=== PATIENT | female | born 1935 | race Caucasian/White ===

== ENCOUNTER → 2019-07-31 10:30 | Outpatient (BNVA) | payer MEDICARE, OTHER, SELFPAY | PROVIDERS: Family Provider Family Medicine; PCP Family Medicine; Referring Provider Family Medicine; Visit Provider Family Medicine | DX: E11.9 Type 2 diabetes mellitus without complications (principal); I10 Essential (primary) hypertension; M75.52 Bursitis of left shoulder; Z79.4 Long term (current) use of insulin | CPT/HCPCS: 80053; 83036; 85025 ==

== ENCOUNTER → 2020-02-18 15:32 | Outpatient (BNVA) | payer MEDICARE, OTHER, SELFPAY | PROVIDERS: Family Provider Family Medicine; PCP Family Medicine; Visit Provider Family Medicine | DX: E11.9 Type 2 diabetes mellitus without complications (principal); I10 Essential (primary) hypertension; Z79.4 Long term (current) use of insulin; M75.52 Bursitis of left shoulder; M47.812 Spondylosis without myelopathy or radiculopathy, cervical region; M47.816 Spondylosis without myelopathy or radiculopathy, lumbar region | CPT/HCPCS: 80053; 83036; 85025 ==

== ENCOUNTER → 2020-08-18 15:50 | Outpatient (BNVA) | payer MEDICARE, OTHER, SELFPAY | PROVIDERS: Family Provider Family Medicine; PCP Family Medicine; Visit Provider Family Medicine | DX: R60.0 Localized edema (principal); M75.52 Bursitis of left shoulder; E11.9 Type 2 diabetes mellitus without complications; M47.812 Spondylosis without myelopathy or radiculopathy, cervical region; M47.816 Spondylosis without myelopathy or radiculopathy, lumbar region; M17.12 Unilateral primary osteoarthritis, left knee; Z79.4 Long term (current) use of insulin | CPT/HCPCS: 80048; 83036; 85025 ==

== ENCOUNTER 2020-09-11 09:21 | Inpatient (IN) | payer MEDICARE, OTHER, SELFPAY ==
[2020-09-11] VITALS (12 sets, daily range): BP systolic 88–157; BP diastolic 37–98; PULSE 66–84; RESP 16–20; TEMP 37.4–39; O2SAT 92–99; BMI 45.7
--- NOTE | 2020-09-11 10:12 | XR_ITS ---
WS: [id number] Portable AP semiupright chest, 09/11/2020 Clinical Data: dyspnea/cough Comparison: Portable chest, 12/24/2018. Findings: No nodules, masses or effusions are seen. The heart is normal. The pulmonary vascularity is not increased. No pneumonia or pneumothorax is seen. The aortic arch and descending aorta show calci fication and tortuosity. XR/XR chest 1V portable [id number] Impression: Atherosclerosis.
--- NOTE | 2020-09-11 10:12 | ECG_ITS ---
[facility] Test Date: 2020-09-11 Pat Name: Victoria Knox Department: Room: Gender: Female Floor Helper: : 1935 Requested By: Williams Lemons Order Number: [id number] Dottie MD: Rachel Dennis M.D. Measurements Intervals [place] Rate: 69 P: 50 MI: 168 QRS: -14 QRSD: 94 T: 49 QT: 376 QTc: 404 Interpretive Statements SINUS RHYTHM Compared to ECG 12/24/2018 08:22:00 No significant changes Electronically Signed On 09-12-2020 6:16:13 CDT by Rachel Dennis M.D. [id number]
--- NOTE | 2020-09-11 10:16 | ED_ITS ---
HPI - Fever General: Chief Complaint: Fever Stated Complaint: WEAKNESS/ DIFFICULTY BREATHING/ SPEAKING Time Seen by Provider: 09/11/20 09:42 History of Present Illness: HPI Narrative: 85-year-old female presents emergency room with complaint of shortness of breath and fever. She has had multiple strokes in the past and over the last week has been more difficult to communicate with event more difficulty understanding her speech. Because of her previous strokes a little bit difficult to quantify the family believes she was last normal on Tuesday night which would have been 36 hours ago. She has had a bit of a fever and a cough she is normally does not wear oxygen is now requiring 2 L by nasal cannula to maintain sats in the upper 90s. Denies chest pain. MD elicited complaint: fever Pertinent past history: diabetes Onset (ago): day(s) Measured temperature: 100.9 F Exacerbating factors: nothing Relieving factors: nothing Associated symptoms: Reports chills, confusion, cough and short of breath; Deny abdominal pain, flank pain, chest pain, diarrhea, dysuria, extremity pain, headache(s), myalgias, nasal congestion, nausea, night sweats, rash, rhinorrhea, sinus pain, stiffness, sore throat or vomiting Treatments prior to arrival fever: other (Oxygen) Review of Systems Const: Reports: chills; Denies: night sweats ENMT: Denies: nasal congestion or sinus pain Card: Denies: chest pain Resp: Denies: dyspnea, productive cough or non-productive cough GI: Denies: abdominal pain, nausea, vomiting or diarrhea : Denies: flank pain or dysuria Musc: Denies: extremity pain Skin/Breast: Denies: rash or pruritus Neuro: Reports: confusion; Denies: headache(s) PFSH ED PFSH: Medical History Bursitis of left shoulder Degenerative joint disease of cervical and lumbar spine Diabetes Hypertension Hypothalamic hypothyroidism Incontinence Osteoarthritis Social History Smoking and tobacco status: never smoked Alcohol intake: never Physical Exam Const: COMMON NORMALS: no acute distress GENERAL APPEARANCE: cooperative and comfortable ORIENTATION/CONSCIOUSNESS: Yes oriented to person, Yes oriented to place and Yes oriented to time HENMT: COMMON NORMALS: normocephalic, atraumatic and hearing grossly normal bilaterally HEAD & SCALP: normocephalic and atraumatic Neck/C-Spine: COMMON NORMALS: no JVD Lymph: LYMPHATIC: no lymphadenopathy noted and no lymphedema noted Resp: COMMON NORMALS: normal respiratory effort, No retractions, No use of accessory muscles and clear to auscultation bilaterally AUSCULTATION: clear to auscultation bilaterally Cardio: COMMON NORMALS: no JVD, regular rate, regular rhythm and No murmurs present (Cardio) RATE: regular rate RHYTHM: regular rhythm GI: COMMON NORMALS: Soft to palpation and No hepatosplenomegaly present AUSCULTATION: Yes normoactive bowel sounds PALPATION: Yes Soft to palpation, No Tenderness to palpation present (GI), No Guarding due to palpation present (GI) and Yes No hepatosplenomegaly present Extremity: COMMON NORMALS: normal to inspection, capillary refill normal, no clubbing, cyanosis or edema, no calf tenderness and no pedal edema Neuro: SENSORIUM/ORIENTATION: Yes oriented to person, Yes oriented to place and Yes oriented to time Skin: COMMON NORMALS: no rashes or lesions noted GENERAL SKIN EXAM: no rashes or lesions noted Course Vital Signs: Vital signs: Vital Signs Temperature 102.2 F H 09/11/20 09:24 Pulse Rate 69 09/11/20 14:00 Respiratory Rate 16 09/11/20 14:00 Blood Pressure 112/67 09/11/20 14:00 Pulse Oximetry 97 09/11/20 14:00 MDM - Fever MDM Narrative: Medical decision making narrative: Is aExtended delay in the patient's work-up. Family refused to allow testing to be done that was ordered because they were concerned that if she had testing we would be vaccinating her for Covid. I reassured them that this was not the case despite this they declined testing for an extended period of time ultimately I was able to conv katarina him to allow us to do at least one Covid test. CT the head and abdomen did not show anything acute however there is a concern of a cystic mass in the tail of the pancreas that will need to be further evaluated. I do not think this necessarily because of her fever. She has a mild cystitis with that as well does not seem to be significant enough to cause a degree of fever that we have been seeing. These are still pending work and admit the patient as a PUI will also cover for possible meningitis friends up because of her encephalopathy. This is multifactorial infectious as well as chronic underlying dementia. Because of her thrombocytopenia and aspirin use we will have to hold off on RONALD and lumbar tap discussed Dr. Ruiz he agreed we will start her on acyclovir as well as antibiotic coverage for possible meningitis. Lab Data: Labs: Lab Results 09/11/20 09/11/20 09/11/20 Range/Units 10:30 10:40 10:40 WBC 3.8 L (4.0-10.0) 10^3/ uL RBC 4.63 (4.1-5.3) 10^6/u L Hgb 14.0 (11.5-15.3) g/dL Hct 43.3 (37.0-47.0) % MCV 93.5 (81-99) fL MCH 30.2 (28.0-34.0) pg MCHC 32.3 (30.0-36.0) g/dL RDW 14.5 (12.1-15.1) % Plt Count 95 L (130-400) 10^3/c mm MPV 10.3 (7.4-10.4) fL Neut % (Auto) 70.0 % Lymph % (Auto) 21.1 % [place] % (Auto) 6.7 % Eos % (Auto) 0.0 % Baso % (Auto) 1.1 % Neut # (Auto) 2.63 (1.8-7.7) 10^3/u L Lymph # (Auto) 0.8 (0.8-4.8) 10^3/u L [place] # (Auto) 0.3 (0.2-0.9) 10^3/u L Eos # (Auto) 0.0 (0.0-0.8) 10^3/u L Baso # (Auto) 0.0 (0.0-0.1) 10^3/u L Nucleated RBC % (a uto) 0 % Nucleated RBCs # 0.0 /100WBC Sodium Potassium Chloride Carbon Dioxide Anion Gap BUN Creatinine GFR Calculation Glucose Calculated Osmolal ity Lactic Acid Cancelled Lactate Calcium Total Bilirubin AST ALT Alkaline Phosphata se Creatine Kinase Total Protein Albumin Globulin Lipase Urine Color Straw (Yellow) Urine Appearance Sl hazy (CLEAR) Urine pH 5 (5-7) Ur Specific Gravit y 1.010 (1.005-1.030) Urine Protein Neg (Negative) Urine Glucose (UA) Norm (Normal) Urine Ketones Negative (Negative) Urine Blood 3+ H (Negative) Urine Nitrate Positive H (Negative) Urine Bilirubin Neg (Negative) Urine Urobilinogen Norm (Negative) mg/dL Ur Leukocyte Lucy ase 1+ H (Negative) Urine RBC 10-15 H (0-2) /hpf Urine WBC 5-10 H (0-5) /hpf Ur Squamous Epith Cells 0-4 H (0-5) /hpf Amorphous Sediment Not Reportable Urine Bacteria 4+ H (NONE) /hpf Serum Ketones 09/11/20 09/11/20 09/11/20 Range/Units 10:40 10:40 11:19 WBC (4.0-10.0) 10^3/ uL RBC (4.1-5.3) 10^6/u L Hgb (11.5-15.3) g/dL Hct (37.0-47.0) % MCV (81-99) fL MCH (28.0-34.0) pg MCHC (30.0-36.0) g/dL RDW (12.1-15.1) % Plt Count (130-400) 10^3/c mm MPV (7.4-10.4) fL Neut % (Auto) % Lymph % (Auto) % [place] % (Auto) % Eos % (Auto) % Baso % (Auto) % Neut # (Auto) (1.8-7.7) 10^3/u L Lymph # (Auto) (0.8-4.8) 10^3/u L [place] # (Auto) (0.2-0.9) 10^3/u L Eos # (Auto) (0.0-0.8) 10^3/u L Baso # (Auto) (0.0-0.1) 10^3/u L Nucleated RBC % (a uto) % Nucleated RBCs # /100WBC Sodium Cancelled Potassium Cancelled Chloride Cancelled Carbon Dioxide Cancelled Anion Gap Cancelled BUN Cancelled Creatinine Cancelled GFR Calculation Cancelled Glucose Cancelled Calculated Osmolal ity Cancelled Lactic Acid Lactate Calcium Cancelled Total Bilirubin Cancelled AST Cancelled ALT Cancelled Alkaline Phosphata se Cancelled Creatine Kinase Cancelled Total Protein Cancelled Albumin Cancelled Globulin Cancelled Lipase Cancelled Urine Color (Yellow) Urine Appearance (CLEAR) Urine pH (5-7) Ur Specific Gravit y (1.005-1.030) Urine Protein (Negative) Urine Glucose (UA) (Normal) Urine Ketones (Negative) Urine Blood (Negative) Urine Nitrate (Negative) Urine Bilirubin (Negative) Urine Urobilinogen (Negative) mg/dL Ur Leukocyte Lucy ase (Negative) Urine RBC (0-2) /hpf Urine WBC (0-5) /hpf Ur Squamous Epith Cells (0-5) /hpf Amorphous Sediment Urine Bacteria (NONE) /hpf Serum Ketones Cancelled Negative 09/11/20 09/11/20 09/11/20 Range/Units 11:19 11:40 11:57 WBC (4.0-10.0) 10^3/ uL RBC (4.1-5.3) 10^6/u L Hgb (11.5-15.3) g/dL Hct (37.0-47.0) % MCV (81-99) fL MCH (28.0-34.0) pg MCHC (30.0-36.0) g/dL RDW (12.1-15.1) % Plt Count (130-400) 10^3/c mm MPV (7.4-10.4) fL Neut % (Auto) % Lymph % (Auto) % [place] % (Auto) % Eos % (Auto) % Baso % (Auto) % Neut # (Auto) (1.8-7.7) 10^3/u L Lymph # (Auto) (0.8-4.8) 10^3/u L [place] # (Auto) (0.2-0.9) 10^3/u L Eos # (Auto) (0.0-0.8) 10^3/u L Baso # (Auto) (0.0-0.1) 10^3/u L Nucleated RBC % (a uto) % Nucleated RBCs # /100WBC Sodium 133 L Potassium 4.2 Chloride 93 L Carbon Dioxide 28 Anion Gap 16.2 BUN 31 H Creatinine 1.9 H GFR Calculation Not Reportable Glucose 139 H Calculated Osmolal ity 285 Lactic Acid 2.2 Lactate Cancelled Calcium 8.4 L Total Bilirubin 0.6 AST 76 H ALT 33 Alkaline Phosphata se 66 Creatine Kinase 46 Total Protein 6.4 L Albumin 3.5 Globulin 2.9 Lipase 17 Urine Color (Yellow) Urine Appearance (CLEAR) Urine pH (5-7) Ur Specific Gravit y (1.005-1.030) Urine Protein (Negative) Urine Glucose (UA) (Normal) Urine Ketones (Negative) Urine Blood (Negative) Urine Nitrate (Negative) Urine Bilirubin (Negative) Urine Urobilinogen (Negative) mg/dL Ur Leukocyte Lucy ase (Negative) Urine RBC (0-2) /hpf Urine WBC (0-5) /hpf Ur Squamous Epith Cells (0-5) /hpf Amorphous Sediment Urine Bacteria (NONE) /hpf Serum Ketones Discharge Plan Discharge Patient Disposition: Admitted As Inpatient Clinical Impression: Acute encephalopathy, Hypertension, UTI (urinary tract infection), CKD (chronic kidney disease), Diabetes, Fever, Hypoxia Condition: Stable Prescriptions: No Action Advanced Probiotic-10 13 mg (3 billion cell) capsule 1 cap PO DAILY RF: 0 pyridoxine (vitamin B6) 100 mg tablet 50 mg PO DAILY RF: 0 cholecalciferol (vitamin D3) 50 mcg (2,000 unit) capsule 50 mcg PO DAILY RF: 0 furosemide 40 mg tablet 40 mg PO BID 90 Days Qty: 180 RF: 3 aspirin 81 mg tablet,delayed release (DR/EC) 81 mg PO DAILY RF: 0 omeprazole 20 mg capsule,delayed release(DR/EC) 20 mg PO DAILY 90 Days Qty: 90 RF: 3 Levemir FlexTouch U-100 Insuln 100 unit/mL (3 mL) insulin pen 30 unit SUBCUT DAILY 30 Days Qty: 15 RF: 5 insulin aspart U-100 [Novolog U-100 Insulin aspart] 100 unit/mL solution 10 unit SUBCUT TID 30 Days Qty: 10 RF: 11 diclofenac sodium [Voltaren Arthritis Pain] 1 % gel 2 g topical QID Qty: 100 RF: 3 hydrocodone-acetaminophen 5-325 mg tablet 1 tab PO Q12H PRN (Reason: pain) 30 Days Qty: 60 RF: 0 potassium 99 mg PO DAILY RF: 0 metoprolol tartrate 25 mg tablet 25 mg PO DAILY RF: 0 Referrals: Liana Lyon MD [Primary Care Provider] - Coding Level of Care Code ED President And Chief Executive Officer for Chg Fwd Exam Comprehensive
[2020-09-11 10:54] LABS: Basophils % 1.1 %; Hematocrit 43.3 % (37.0-47.0); Lymphocytes # 0.8 10^3/uL (0.8-4.8); Lymphocytes % 21.1 %; Mean Corpuscular HGB Conc 32.3 g/dL (30.0-36.0); Mean Corpuscular Hemoglobin 30.2 pg (28.0-34.0); Mean Corpuscular Volume 93.5 fL (81-99); Mean Platelet Volume 10.3 fL (7.4-10.4); Monocytes # 0.3 10^3/uL (0.2-0.9); Monocytes % 6.7 %; Neutrophils # 2.63 10^3/uL (1.8-7.7); Nucleated Red Blood Cells % 0 %; Platelet Count 95 10^3/cmm (130-400); Red Blood Count 4.63 10^6/uL (4.1-5.3); Red Cell Distribution Width 14.5 % (12.1-15.1); White Blood Count 3.8 10^3/uL (4.0-10.0)
[2020-09-11 11:43] LABS: Alanine Aminotransferase 33 U/L (0-33); Albumin Level 3.5 g/dL (3.5-5.2); Alkaline Phosphatase 66 IU/L (35-105); Blood Urea Nitrogen 31 mg/dL (8-23); Calcium 8.4 mg/dL (8.5-10.5); Carbon Dioxide 28 mmol/L (22-29); Chloride 93 mmol/L (98-107); Creatine Phosphokinase 46 U/L (26-192); Globulin 2.9 g/dL (1.3-4.6); Glucose 139 mg/dL (65-115); Lipase 17 U/L (13-60); Osmolality Calculated 285 mOsm/kg (285-295); Sodium 133 mmol/L (136-145); Total Bilirubin 0.6 mg/dL (0.15-1.2); Total Protein 6.4 g/dL (6.6-8.7)
[2020-09-11 11:46] LABS: Add Urine Microscopic? YES; Bilirubin Urine Neg (Negative); Blood Urine 3+ (Negative); Glucose Urine UA Norm (Normal); Ketones Urine Negative (Negative); Leukocyte Esterase Urine 1+ (Negative); Nitrate Urine Positive (Negative); Protein Urine Neg (Negative); Urine Appearance SL Hazy (CLEAR); Urine Color Straw (Yellow); Urobilinogen Urine Norm (Negative); pH Urine 5 (5-7)
[2020-09-11 11:47] LABS: Add Urine Culture? Yes; Bacteria Urine 4+ /hpf; Squamous Epithelial Cell Urine 0-4 /hpf (0-5)
[2020-09-11 12:00] LABS: Anion Gap 16.2 (5-19); Potassium 4.2 mmol/L (3.5-5.1)
[2020-09-11 12:01] LABS: Aspartate Amino Transferase 76 U/L (0-32)
[2020-09-11 12:04] LABS: Ketone (Acetest) Serum Negative (Negative)
[2020-09-11 12:14] LABS: Lactic Sepsis W/Reflex 2.2 mmol/L (0.5-2.2)
--- NOTE | 2020-09-11 12:58 | CT_ITS ---
WS: [id number] CT ABDOMEN AND PELVIS NONCONTRAST HISTORY: flank pain TECHNIQUE: Imaging performed through the abdomen and pelvis. Coronal and sagittal reformats are submi tted. All CT scans at [facility] use at least one of these dose optimization techniques: automated exposure control; mA and/or kV adjustment per patient size (includes targeted exams where d ose is matched to clinical indication); or iterative reconstruction. DLP: 2413.59 mGy.cm COMPARISON: 07/08/2014 Lower thorax: Mild dependent changes at the lung bases. Normal size heart. Moderate hiatal hernia. Liver: Normal size liver. No mass or bile duct dilatation. Gallbladder: Prior cholecystectomy. Pancreas: Severe atrophy of the pancreas. Calcification measuring 7 mm near the distal common bile du ct. There is no bile duct dilatation. Suspect this is probably external to the common bile duct. Lobu lated cystic mass inseparable from the tail of pancreas measures 3.4 x 2.0 cm. Spleen: Normal. Adrenal glands: Low-attenuation lobulated mass at the splenic hilum is new. Closely associated with t he tail of the pancreas and could be a cystic pancreatic neoplasm. Right kidney: Normal size kidney with no mass or hydronephrosis. Left kidney: Normal size kidney with no mass or hydronephrosis. Aorta: Mild atherosclerosis abdominal aorta with no aneurysm. Ectatic aorta. IVC filter noted. No free fluid, intraperitoneal air or significant lymphadenopathy. GI tract: Normal appendix. No GI tract obstruction. No evidence for colitis or enterocolitis. Abdominal wall: Fat-containing umbilical hernia. Additional ventral hernia within the pelvis contains a loop of nondilated colon. Pelvis: Normal. Osseous structures: Advanced degenerative changes in the lumbar spine. Multilevel areas of severe los s of disc space height. Prior RIGHT hip arthroplasty. CT/CT kidney stone [id number] IMPRESSION: 1. No LEFT renal obstruction or calcification. 2. No GI tract obstruction. 3. Lobulated cystic mass adjacent to the tail of pancreas. New since 2014. 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 May be be nign. No adenopathy. 4. Ventral pelvic hernia contains colon with no obstruction.
--- NOTE | 2020-09-11 12:59 | CT_ITS ---
WS: [id number] CT HEAD NONCONTRAST HISTORY: AMS TECHNIQUE: Contiguous axial imaging performed through the brain in 2.5 mm imaging. Bone and soft tiss ue windows. Sagittal and coronal reformats reviewed. All CT scans at [facility] use at ast one of these dose optimization techniques: automated exposure control; mA and/or kV adjustment pe r patient size (includes targeted exams where dose is matched to clinical indication); or iterative r econstruction. DLP: 949.46 mGy.cm COMPARISON: 12/24/2018 No acute intracranial hemorrhage, midline shift or mass effect. Moderate bilateral symmetric atrophy. Prior lacunar infarct in the LEFT thalamus and in the LEFT cent rum semiovale. Mild bilateral chronic microvascular ischemic changes. Ventricles: Normal size with no hydrocephalus. Paranasal sinuses: As visualized are clear. Mastoid air cells: Well pneumatized. Calvarium and scalp: Skull is intact with no soft tissue edema or swelling. CT/CT head wo con* [id number] IMPRESSION: 1. No acute intracranial hemorrhage or edema. 2. Mild atrophy and chronic ischemic disease is stable. 3. Prior lacunar infarcts in the LEFT thalamus and centrum semiovale ovale.
[2020-09-11 14:03] LABS: Reflex Lactate Order REFLEX LACTIC ORDERD
[2020-09-11 14:55] LABS: Influenza A by IFA Negative (Negative); Influenza B by IFA Negative (Negative); SARS Covid-2 Antigen Negative (Negative)
[2020-09-11] MEDS: cefTRIAXone 2,000 MG in sodium chloride 0.9% (plus) 50 ML 100 MG IV (15:11)
[2020-09-11] MEDS: acetaminophen 1,000 MG/100 ML PIGGYBACK 400 MG IV (15:16)
[2020-09-11 15:28] LABS: Lactic Acid level (Lactate) 1.3 mmol/L (0.5-2.2)
[2020-09-11] MEDS: acyclovir 1,000 MG in sodium chloride 0.9% (100 ml) 100 ML 120 MG IV (15:50)
[2020-09-11] MEDS: vancomycin 1,000 MG in sodium chloride 0.9% 250 ML 250 MG IV (15:50)
[2020-09-11 16:05] LABS: Glucose Point of Care 134 mg/dL (70-110)
--- NOTE | 2020-09-11 17:13 | PM.HP ---
Providers/Chief Complaint Primary Care Provider: Liana Lyon MD Chief Complaint: WEAKNESS/ DIFFICULTY BREATHING/ SPEAKING History of Present Illness 85-year-old lady with history of CVA, diabetes, HTN, DJD, GERD, morbid obesity, chronic lymphedema was brought in by her family (she lives with her 2 daughters) due to generalized weakness starting around Tuesday, being less active, requiring more assistance. She normally walks with a walker, but needed active help from her daughters. Also noted to be more difficult to understand with regards to speaking, with low volume, some slurring, noted fever at home. In ER also noted some petechiae, with her daughter not being sure when dose appeared. She is currently somewhat short of breath, especially with ambulation, this may have been somewhat worse, but did not notice. In ER she was noted to be hypoxic, requiring 3 L oxygen by nasal cannula. She does not have known lung disease or known congestive heart failure. Swelling in her legs is chronic with chronic lymphedema, and has not been worse than usual. In ER she is noted leukopenia, WBC 3.8, platelets 95,000, fever 102.2 is noted. Heart rate 78, respiratory rate 16. CMP with sodium 133, potassium 4.2, chloride 93, bicarb 28, anion gap 16, BUN 31, creatinine 1.9. T bili and alk phos normal. AST with mild elevation of 76. Her daughter does note that she sometimes gets weak, and may get fever with urinary tract infection. UA obtained was positive for nitrate, leukocyte esterase, with 10-15 RBC, 5-10 WBC. 0-4 squamous epithelial cells. 4+ bacteria. Follow-up CT abdomen pelvis renal protocol did not show signs of pyelonephritis or obstruction. Incidentally noted previously unknown lobulated cystic mass adjacent to the tail of pancreas. New since 2015. 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 May be benign. No adenopathy. Also noted ventral pelvic hernia containing colon with no obstruction. CT of the head without acute finding, but with prior lacunar infarcts in left thalamus and centrum semiovale. They are not aware of prior issues with platelets. Daughter reports she had had several tick bites possibly about 3 weeks ago. Daughter states she and her sister take her outside regularly. She notes there was some erythema noted at the spot of the bite, although without spread of the erythema elsewhere. She denies headache, neck stiffness, photophobia. She has had no nausea or vomiting or diarrhea. She was having some chills yesterday. No cough or phlegm production. Review of Systems Const: Reports: fever(s), chills, fatigue and malaise; Denies: body aches Eyes: Denies: change in vision or eye redness ENMT: Denies: throat pain, oral sores or ear or mastoid pain Card: Reports: edema (Chronic lymphedema); Denies: chest pain, pre-syncope or dyspnea on exertion Resp: Denies: dyspnea, productive cough, change in phlegm color or hemoptysis GI: Denies: abdominal pain, nausea, vomiting, diarrhea, constipation, hematochezia or melena : Denies: flank pain, urinary frequency or hematuria Musc: Denies: back pain, joint swelling or joint redness Skin/Breast: Denies: rash, sores or new lesions Neuro: Denies: headache(s), numbness in extremities, weakness in extremities, dizziness, confusion or seizure-like activity Endo: Denies: polyuria or polydipsia Bebeto/Lymph: Denies: easy bleeding or purpura All/Imm: Denies: urticaria, throat swelling or tongue swelling Medications/Allergies Home Medications Medication Instructions Recorded Confirmed Last Taken Type aspirin 81 mg tablet,delayed 81 mg PO DAILY 05/14/19 09/11/20 Unknown History release omeprazole 20 mg capsule,delayed 20 mg PO DAILY 90 Days #90 cap 06/05/19 09/11/20 Unknown Rx release insulin detemir U-100 100 unit/mL 30 unit SUBCUT DAILY 30 Days #15 ml 12/17/19 09/11/20 Unknown Rx (3 mL) subcutaneous pen Lacto no.41-Bifidobac bifidum, 1 cap PO DAILY 02/18/20 09/11/20 Unknown History animalis 13 mg (3 billion cell) capsule cholecalciferol (vitamin D3) 50 50 mcg PO DAILY 02/18/20 09/11/20 Unknown History mcg (2,000 unit) capsule pyridoxine (vitamin B6) 100 mg 50 mg PO DAILY 02/18/20 09/11/20 Unknown History tablet insulin aspart U-100 100 unit/mL 10 unit SUBCUT TID 30 Days #10 ml 04/17/20 09/11/20 Unknown Rx subcutaneous solution diclofenac sodium 1 % topical gel 2 g TOPICAL QID #100 g 05/19/20 09/11/20 Unknown Rx hydrocodone 5 mg-acetaminophen 325 1 tab PO Q12H PRN 30 Days #60 tab 07/03/20 09/11/20 Unknown Rx mg tablet furosemide 40 mg tablet 40 mg PO BID 90 Days #180 tab 08/18/20 09/11/20 Unknown Rx metoprolol tartrate 25 mg PO DAILY 09/11/20 09/11/20 Unknown History potassium 99 mg PO DAILY 09/11/20 09/11/20 Unknown History Allergies Allergy/AdvReac Type Severity Reaction Status Date / Time meperidine [From Demerol] Allergy shortness Verified 09/11/20 09:36 of breath PFSH Acute PFSH: Medical History (Updated 09/11/20 @ 17:46 by Tyrone Velarde MD) Acute renal failure Bursitis of left shoulder Cervical compression fracture Chronic acquired lymphedema Degenerative joint disease of cervical and lumbar spine Diabetes Hypertension Hypothalamic hypothyroidism Incontinence Neuropathic pain Osteoarthritis Venous insufficiency Surgical History History of appendectomy History of arthroscopic knee surgery History of back surgery History of carpal tunnel surgery of right wrist History of cholecystectomy History of hip replacement, total History of tonsillectomy History of total hysterectomy Social History Smoking and tobacco status: never smoked Alcohol intake: never Vitals/I&O/Wt Last Vital Signs Temp 99.7 F H 09/11/20 15:51 Pulse 70 09/11/20 17:00 Resp 16 09/11/20 17:00 BP 94/37 09/11/20 17:00 Pulse Ox 92 09/11/20 17:00 09/11/20 09/11/20 09/11/20 06:59 14:59 22:59 Intake Total 150 / 150 Balance 150 / 150 Weight last 48 hrs Weight 113.398 kg Physical Exam Narrative: EXAM NARRATIVE: Accompanied at bedside by her daughter. Const: COMMON NORMALS: no acute distress and patient oriented x3 EXAM LIMITATIONS: other limitations (Soft spoken, rarely difficulty w word pronunciation) NUTRITIONAL APPEARANCE: obese morbidly obese ORIENTATION/CONSCIOUSNESS: Yes awake and Yes Other orientation findings (Generally weak) HENMT: COMMON NORMALS: oropharynx normal Neck/C-Spine: COMMON NORMALS: no JVD Resp: COMMON NORMALS: normal respiratory effort and clear to auscultation bilaterally AUSCULTATION: clear to auscultation bilaterally and crackles Laterality: bilateral (bases, minimal) Cardio: COMMON NORMALS: no JVD, regular rhythm, S1 normal heart sound present, S2 normal heart sound present and No murmurs present (Cardio) RHYTHM: regular rhythm HEART SOUNDS: S1 normal heart sound present and S2 normal heart sound present GI: COMMON NORMALS: Normal to inspection, nondistended, normoactive bowel sounds present, Soft to palpation and non-tender PALPATION: Yes Soft to palpation Extremity: COMMON NORMALS: no joint enlargement GENERAL: Yes edema (Chronic lymphedema) Neuro: COMMON NORMALS: patient oriented x3 and moves all extremities Skin: COMMON NORMALS: no rashes or lesions noted GENERAL SKIN EXAM: no rashes or lesions noted and petechiae Data : 09/11/20 10:40 09/11/20 11:19 Micro: Microbiology 09/11/20 12:45 Blood Culture - Preliminary Blood SPECIMEN COLLECTED 09/11/20 12:50 Blood Culture - Preliminary Blood SPECIMEN COLLECTED A&P Assessment and plan (1) Sepsis: Sepsis with fever 102.2 Fahrenheit, leukopenia, 3.2. Source appears to be urinary tract infection. Does not appear to have any obstruction or pyelonephritis per CT scan. Alternatively also with recent tick bites, possible tickborne illness, with noted bicytopenia, transaminitis. Generalized weakness, lethargy, mild speech impediment, although this may be related to weakness. Denies headache, no neck stiffness, no photosensitivity. 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 Alternatively may also be related to tick bite. At this time LP not possible with thrombocytopenia, on aspirin. Risk of bleeding. Empiric antibiotic coverage for urinary tract infection with ceftriaxone, plus vancomycin, acyclovir. Doxycycline. Blood cultures collected. Urine cultures. Follow-up. Tick panel. Hold aspirin for now for possibility of LP if needed. Status: Acute (2) Fever: As above. Status: Acute (3) Bicytopenia: Leukopenia, thrombocytopenia, new. Possibly secondary to sepsis. Possibly related to recent tick bite. As above. Follow counts. Peripheral smear. LDH, haptoglobin. Globulin level appears normal. Status: Acute (4) Transaminitis: Possibly secondary to sepsis, possibly secondary to tick bite. As above. Monitor liver parameters. Status: Acute (5) UTI (urinary tract infection): Follow urine culture. Continue Rocephin. Status: Acute (6) Hypoxia: New onset hypoxia. Daughter reports chronic issues with shortness of breath especially with activity. Not known to have CHF, although does have chronic lymphedema of lower extremities. At baseline. Rapid COVID-19, rapid flu negative. COVID-19 PCR pending, Covid as discussed with her daughter possible. Does not appear she had had vaccination. With cytopenias, transaminitis, hypoxia, generalized weakness, fatigue, Covid still possible, although lacks other symptoms, only mild dependent changes in lower thorax on CT. Follow-up PCR. Maintain isolation. Monitor oxygenation. Status: Acute (7) Chronic acquired lymphedema: Bilateral lower extremities. NT proBNP likely not helpful in setting of chronic kidney disease, obesity. Does not appear to have orthopnea. TTE. Status: Acute (8) Tick bite: Tick panel requested. Doxycycline. As above. Status: Acute (9) Cystic mass of pancreas: Incidentally noted 3.5 cm lobulated cystic mass adjacent to tail of pancreas. Thought to be possibly neoplasm. Could be benign. Discussed with patient and family, with additional work-up to include MRI likely on follow-up with PCP after she recovers from acute condition. Status: Acute (10) CKD (chronic kidney disease): Creatinine appears close to recent baseline, 1.9. Status: Acute (11) History of CVA (cerebrovascular accident): Noted prior CVA on CT head. Discussed with daughter difficult exclude aware that she may have had another CVA several days ago. Certainly does have mild speech impediment, possibility of aphasia difficult to exclude. But she is also generally very weak. Currently very soft-spoken. Daughter states normally does not have trouble expressing herself. For now aspirin on hold due to sepsis, need for possible LP down the road. Once able to, resume antiplatelet, would also add cholesterol medication especially in the setting of diabetes. Optimize risk factors, blood pressure control, diabetes. Cardiac monitoring while in the hospital. Status: Acute (12) Generalized weakness: As above. Check TSH. PT, OT assessment once she is a little bit more stable. Status: Acute Additional A&P Information DM2 HTN Morbid obesity GERD DJD Attestations Medical Necessity Statement*: Admission of over 2 midnights is going to be needed for assessment management of sepsis, new cytopenias, UTI, new hypoxia, acute encephalopathy, recent tick bites, in the setting of chronic kidney disease, in a lady with morbid obesity and metabolic syndrome. Coding Level of Care Code Acute Cash Register Balancer for Chg Fwd Exam Comprehensive Diagnoses Sepsis A41.9 Fever R50.9 Bicytopenia D75.89 Transaminitis R74.01 UTI (urinary tract infection) N39.0 Hypoxia R09.02 Chronic acquired lymphedema I89.0 Tick bite W57.XXXA Cystic mass of pancreas K86.2 CKD (chronic kidney disease) N18.9 History of CVA (cerebrovascular accident) Z86.73 Generalized weakness R53.1
[2020-09-11] MEDS: doxycycline 100 MG in sodium chloride 0.9% (plus) 100 ML IV (19:20)
[2020-09-11 19:41] LABS: Thyroid Stimulating Hormone 1.08 uIU/mL (0.27-4.20)
[2020-09-11 20:02] LABS: Lactate Dehydrogenase 371 U/L (135-214)
[2020-09-11 20:30] LABS: LAB Peripheral Smear Sent for Review
[2020-09-11 23:05] LABS: Glucose Point of Care 252 mg/dL (70-110)
[2020-09-12] VITALS (7 sets, daily range): BP systolic 98–136; BP diastolic 64–76; PULSE 69–96; RESP 16–20; TEMP 36.8–38.9; O2SAT 92–95
[2020-09-12] MEDS: acyclovir 1,000 MG in sodium chloride 0.9% (100 ml) 100 ML 120 MG IV ×2 (03:29→16:05)
[2020-09-12] MEDS: cefTRIAXone 2,000 MG in sodium chloride 0.9% (plus) 50 ML 100 MG IV ×2 (03:30→14:19)
[2020-09-12] MEDS: acetaminophen 325 mg Tablet 650 MG PO (04:35)
[2020-09-12 05:48] LABS: Basophils % 0.8 %; Hematocrit 38.6 % (37.0-47.0); Hemoglobin 12.5 g/dL (11.5-15.3); Lymphocytes # 0.7 10^3/uL (0.8-4.8); Lymphocytes % 29.1 %; Mean Corpuscular HGB Conc 32.4 g/dL (30.0-36.0); Mean Corpuscular Hemoglobin 29.8 pg (28.0-34.0); Mean Corpuscular Volume 92.1 fL (81-99); Mean Platelet Volume 10.7 fL (7.4-10.4); Monocytes # 0.2 10^3/uL (0.2-0.9); Monocytes % 7.7 %; Neutrophils # 1.52 10^3/uL (1.8-7.7); Neutrophils % 61.6 %; Nucleated Red Blood Cells % 0 %; Platelet Count 65 10^3/cmm (130-400); Red Blood Count 4.19 10^6/uL (4.1-5.3); Red Cell Distribution Width 13.6 % (12.1-15.1); White Blood Count 2.5 10^3/uL (4.0-10.0)
[2020-09-12 06:02] LABS: Alanine Aminotransferase 34 U/L (0-33); Albumin Level 3.1 g/dL (3.5-5.2); Alkaline Phosphatase 79 IU/L (35-105); Anion Gap 15.9 (5-19); Aspartate Amino Transferase 73 U/L (0-32); Blood Urea Nitrogen 35 mg/dL (8-23); Calcium 8.1 mg/dL (8.5-10.5); Carbon Dioxide 29 mmol/L (22-29); Chloride 97 mmol/L (98-107); Globulin 2.5 g/dL (1.3-4.6); Glucose 203 mg/dL (65-115); Osmolality Calculated 300 mOsm/kg (285-295); Potassium 3.9 mmol/L (3.5-5.1); Sodium 138 mmol/L (136-145); Total Bilirubin 0.3 mg/dL (0.15-1.2); Total Protein 5.6 g/dL (6.6-8.7)
[2020-09-12 06:26] LABS: Slide Review Slide Review Perform
[2020-09-12 07:02] LABS: Glucose Point of Care 198 mg/dL (70-110)
[2020-09-12] MEDS: pantoprazole DR 40 mg Tablet PO (10:16)
[2020-09-12] MEDS: doxycycline 100 MG in sodium chloride 0.9% (plus) 100 ML IV ×2 (10:16→20:12)
[2020-09-12 10:44] LABS: Glucose Point of Care 318 mg/dL (70-110)
--- NOTE | 2020-09-12 11:03 | PC.NUTR ---
Nutrition note: Assessment triggered for MST=2 for possible wt loss, however, appears to be in error, with conflicting answers noted. No significant wt change per previous admission records. Will assess at 5day LOS per policy or as needed per further consult.
[2020-09-12 15:00] LABS: Coronavirus Test Green County Not Detected
[2020-09-12] MEDS: vancomycin 1,000 MG in sodium chloride 0.9% 250 ML 250 MG IV (16:03)
[2020-09-12 17:00] LABS: Glucose Point of Care 67 mg/dL (70-110)
[2020-09-12 17:18] LABS: Glucose Point of Care 78 mg/dL (70-110)
--- NOTE | 2020-09-12 20:54 | PM.PN ---
Subjective Subjective: Interval history: She is feeling slightly better. Denies cough. No chest pain. Says breathing is comfortable with nasal cannula on. Fever this morning at 4 AM 102 Fahrenheit, but none since then. Denies headache, nausea vomiting or diarrhea. Vitals/I&O/Wt Last Vital Signs Temp 99.4 F 09/12/20 20:00 Pulse 82 09/12/20 20:00 Resp 20 H 09/12/20 20:00 BP 121/72 09/12/20 20:00 Pulse Ox 94 09/12/20 20:00 09/12/20 09/12/20 09/12/20 06:59 14:59 22:59 Intake Total 170 / 790 1050 / 1050 670 / 1720 Balance 170 / 790 1050 / 1050 670 / 1720 Weight last 48 hrs Weight 112.037 kg Weight 113.398 kg Physical Exam Const: COMMON NORMALS: no acute distress and patient oriented x3 GENERAL APPEARANCE: cooperative NUTRITIONAL APPEARANCE: obese morbidly obese ORIENTATION/CONSCIOUSNESS: Yes awake and Yes Other orientation findings (Generally weak) OTHER: A little bit more energetic today, appears better, speaks louder in longer sentences. HENMT: COMMON NORMALS: oropharynx normal Neck/C-Spine: COMMON NORMALS: no JVD Resp: COMMON NORMALS: normal respiratory effort and clear to auscultation bilaterally AUSCULTATION: clear to auscultation bilaterally and diminished lung sounds Cardio: COMMON NORMALS: no JVD, regular rhythm, S1 normal heart sound present, S2 normal heart sound present and No murmurs present (Cardio) RHYTHM: regular rhythm HEART SOUNDS: S1 normal heart sound present and S2 normal heart sound present GI: COMMON NORMALS: Normal to inspection, nondistended, normoactive bowel sounds present, Soft to palpation and non-tender PALPATION: Yes Soft to palpation Extremity: COMMON NORMALS: no joint enlargement GENERAL: Yes edema (Chronic lymphedema) Neuro: COMMON NORMALS: patient oriented x3 and moves all extremities Skin: COMMON NORMALS: no rashes or lesions noted GENERAL SKIN EXAM: no rashes or lesions noted and petechiae Data : 09/12/20 05:32 09/12/20 05:32 Micro: Microbiology 09/12/20 15:44 Blood Culture - Preliminary Blood SPECIMEN COLLECTED 09/12/20 15:44 Blood Culture - Preliminary Blood SPECIMEN COLLECTED 09/11/20 12:50 Blood Culture - Preliminary Blood NEGATIVE TO DATE 09/11/20 12:45 Blood Culture - Preliminary Blood Gram positive cocci 09/11/20 10:30 Urine Culture - Preliminary Urine,Clean Catch Gram Negative Rods A&P Assessment and plan (1) Sepsis: Again fever 102 Fahrenheit early this morning, but subsequently no fever. Sepsis appears to be improving. Still persistent bicytopenia, WBC 2.5, platelets 65,000. Nonsevere neutropenia, 1500. Pending COVID-19 PCR Continue empiric antibiotic treatment with ceftriaxone, vancomycin, doxycycline, acyclovir. 03/10 bottles gram-positive cocci on blood culture. Repeat blood cultures. Blood cultures collected. Urine cultures. Follow-up. Tick panel. Hold aspirin for now for possibility of LP if needed. Status: Acute (2) Fever: As above. Status: Acute (3) Bicytopenia: With some worsening today, with moderate neutropenia 1500, platelets down to 65,000. Treat sepsis as above. Leukopenia, thrombocytopenia, new. Possibly secondary to sepsis. Possibly related to recent tick bite. As above. Follow counts. Peripheral smear. LDH, haptoglobin not suggestive of hemolysis. Check B12, folic acid. Globulin level appears normal. Status: Acute (4) Transaminitis: Possibly secondary to sepsis, possibly secondary to tick bite. As above. Monitor liver parameters. Status: Acute (5) UTI (urinary tract infection): Follow urine culture. Continue Rocephin. Status: Acute (6) Hypoxia: New onset hypoxia. Daughter reports chronic issues with shortness of breath especially with activity. Not known to have CHF, although does have chronic lymphedema of lower extremities. At baseline. Rapid COVID-19, rapid flu negative. COVID-19 PCR pending, Covid as discussed with her daughter possible. Does not appear she had had vaccination. With cytopenias, transaminitis, hypoxia, generalized weakness, fatigue, Covid still possible, although lacks other symptoms, only mild dependent changes in lower thorax on CT. Follow-up PCR. Maintain isolation. Monitor oxygenation. Status: Acute (7) Chronic acquired lymphedema: Bilateral lower extremities. NT proBNP likely not helpful in setting of chronic kidney disease, obesity. Does not appear to have orthopnea. TTE of poor quality, grade 1 diastolic dysfunction, grossly normal LV systolic function. Status: Acute (8) Tick bite: Tick panel requested. Doxycycline. As above. Status: Acute (9) Cystic mass of pancreas: Incidentally noted 3.5 cm lobulated cystic mass adjacent to tail of pancreas. Thought to be possibly neoplasm. Could be benign. Discussed with patient and family, with additional work-up to include MRI likely on follow-up with PCP after she recovers from acute condition. Status: Acute (10) CKD (chronic kidney disease): Creatinine appears close to recent baseline, 1.9. Status: Acute (11) History of CVA (cerebrovascular accident): Noted prior CVA on CT head. Discussed with daughter difficult exclude aware that she may have had another CVA several days ago. Certainly does have mild speech impediment, possibility of aphasia difficult to exclude. But she is also generally very weak. Currently very soft-spoken. Daughter states normally does not have trouble expressing herself. For now aspirin on hold due to sepsis, need for possible LP down the road. Once able to, resume antiplatelet, would also add cholesterol medication especially in the setting of diabetes. Optimize risk factors, blood pressure control, diabetes. Cardiac monitoring while in the hospital. Status: Acute (12) Generalized weakness: As above. Normal TSH. PT, OT assessment once she is a little bit more stable. Status: Acute Additional A&P Information DM2 HTN Morbid obesity GERD DJD Attestations Medical Necessity Statement*: Continue admission for assessment management of improving sepsis, with bicytopenia, UTI. 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
[2020-09-12 22:02] LABS: Vitamin B12 544 pg/mL (232-1245)
[2020-09-12 22:05] LABS: Glucose Point of Care 98 mg/dL (70-110)
[2020-09-12 22:05] LABS: Glucose Point of Care 75 mg/dL (70-110)
[2020-09-12 22:12] LABS: Folate Level 13.6 ng/mL (4.8-37.3)
--- NOTE | 2020-09-12 22:19 | USCV_ITS ---
Victoria Knox Age: 85 Gender: F : 1935 Exam Date: 09/12/2020 06:17 Ordering Phys: Tyrone Velarde MD Technologist: Rocco Posadas Exam Location: [facility] – [place] Indication: LE EDEMA BP: 136 / 73 HR: 74 Rhythm: Sinus Technical Quality: Suboptimal MEASUREMENTS (Male / Female) Normal Values 2D ECHO LV Diastolic Diameter PLAX 2.8 cm 4.2 - 5.9 / 3.9 - 5.3 cm LV Systolic Diameter PLAX 2.0 cm IVS Diastolic Thickness 0.8 cm 0.6 - 1.0 / 0.6 - 0.9 cm IVS Systolic Thickness 1.1 cm LVPW Diastolic Thickness 1.0 cm 0.6 - 1.0 / 0.6 - 0.9 cm LVPW Systolic Thickness 1.1 cm LVOT Diameter 2.0 cm LV Ejection Fraction 2D Teich 56.0 % LV Ejection Fraction MOD 2C 61.4 % LV Ejection Fraction 2C AL 62.9 % LA Diameter 2.4 cm LA Width 3.5 cm LA Height 4.4 cm RA Width 3.5 cm RA Height 4.0 cm DOPPLER AV Peak Velocity 107.7 cm/s LVOT Peak Velocity 96.0 cm/s AV Area Cont Eq vti 2.6 cm squared AV Area Cont Eq pk 2.8 cm squared MV Area PHT 5.0 cm squared Mitral E to A Ratio 0.8 MV E' Velocity 39.0 cm/s Mitral E to MV E' Ratio 10.8 Mitral E to LV E' Lateral Ratio 10.3 Mitral E to LV E' Septal Ratio 11.3 TR Peak Velocity 175.0 cm/s TR Peak Gradient 12.3 mmHg Right Atrial Pressure 5.0 mmHg Pulmonary Artery Systolic Pressu 17.3 mmHg FINDINGS Left Ventricle Normal left ventricular size. Grossly LV systolic function is normal. Can not rule out regional wall motion abnormalities because of poor visualization.Grade 1 diastolic dysfunction Right Ventricle Grossly normal in size and function Right Atrium Not well visualized Left Atrium Not well visualized Mitral Valve Mitral annular calcification noted. Grossly normal Aortic Valve Not well visualized. No significant regurgitation or stenosis seen Tricuspid Valve Not well visualized. Insufficient TR jet to calculate RVSP Pulmonic Valve Not visualized Pericardium Normal pericardium without effusion. Aorta Normal ascending aorta dimension. CONCLUSIONS This is limited quality echocardiogram because of poor ultrasonic windows. Grossly LV systolic function is normal. Grade 1 diastolic dysfunction. Valvular structures are not well-visualized however no gross abnormalities. Compared to prior echocardiogram from 07/14/2014, no significant changes are seen. Marco Smith MD (Electronically Signed) Final Date: 12 September 2020 12:45 S
[2020-09-13] VITALS (8 sets, daily range): BP systolic 101–143; BP diastolic 66–83; PULSE 68–77; RESP 16–26; TEMP 36.6–37.2; O2SAT 92–98
[2020-09-13] MEDS: cefTRIAXone 2,000 MG in sodium chloride 0.9% (plus) 50 ML 100 MG IV ×2 (02:05→14:59)
[2020-09-13] MEDS: acyclovir 1,000 MG in sodium chloride 0.9% (100 ml) 100 ML 120 MG IV ×2 (03:14→17:30)
[2020-09-13 06:52] LABS: Basophils % 0.6 %; Eosinophils # 0.1 10^3/uL (0.0-0.8); Eosinophils % 1.8 %; Hemoglobin 12.6 g/dL (11.5-15.3); Lymphocytes % 60.7 %; Mean Corpuscular HGB Conc 32.3 g/dL (30.0-36.0); Mean Corpuscular Hemoglobin 30.4 pg (28.0-34.0); Mean Corpuscular Volume 94.2 fL (81-99); Mean Platelet Volume 10.9 fL (7.4-10.4); Monocytes # 0.4 10^3/uL (0.2-0.9); Monocytes % 11.9 %; Neutrophils % 24.7 %; Nucleated Red Blood Cells % 0 %; Platelet Count 61 10^3/cmm (130-400); Red Blood Count 4.14 10^6/uL (4.1-5.3); Red Cell Distribution Width 13.7 % (12.1-15.1); White Blood Count 3.3 10^3/uL (4.0-10.0)
[2020-09-13 06:54] LABS: INR 1.04 (0.8-1.2)
[2020-09-13 06:55] LABS: Partial Thromboplastin Time 33.6 SECONDS (23.9-36.7)
[2020-09-13 07:01] LABS: Fibrinogen 159 mg/dL (174-498)
[2020-09-13 07:06] LABS: Alanine Aminotransferase 35 U/L (0-33); Albumin Level 3.2 g/dL (3.5-5.2); Alkaline Phosphatase 87 IU/L (35-105); Anion Gap 14.7 (5-19); Aspartate Amino Transferase 71 U/L (0-32); Blood Urea Nitrogen 33 mg/dL (8-23); Calcium 8.4 mg/dL (8.5-10.5); Carbon Dioxide 31 mmol/L (22-29); Chloride 99 mmol/L (98-107); Globulin 2.5 g/dL (1.3-4.6); Glucose 73 mg/dL (65-115); Osmolality Calculated 298 mOsm/kg (285-295); Potassium 3.7 mmol/L (3.5-5.1); Sodium 141 mmol/L (136-145); Total Bilirubin 0.3 mg/dL (0.15-1.2); Total Protein 5.7 g/dL (6.6-8.7)
[2020-09-13 07:13] LABS: D Dimer 19.29 ug/mIFEU (0-0.59)
[2020-09-13 07:59] LABS: Slide Review Slide Review Perform
[2020-09-13 08:01] LABS: Neutrophils # 0.81 10^3/uL (1.8-7.7)
[2020-09-13] MEDS: doxycycline 100 MG in sodium chloride 0.9% (plus) 100 ML IV ×2 (08:38→22:35)
[2020-09-13] MEDS: pantoprazole DR 40 mg Tablet PO (08:38)
[2020-09-13 08:45] LABS: Glucose Point of Care 77 mg/dL (70-110)
[2020-09-13 09:02] LABS: Hematocrit 38.6 % (37.0-47.0); Retic Production Index 1.06; Reticulocyte % 1.1 % (0.5-2.0)
[2020-09-13 11:00] LABS: Glucose Point of Care 135 mg/dL (70-110)
[2020-09-13] MEDS: vancomycin 1,000 MG in sodium chloride 0.9% 250 ML 250 MG IV (16:25)
--- NOTE | 2020-09-13 17:02 | PM.PN ---
Subjective Subjective: Interval history: She is overall doing little bit better. She has not had a good appetite. She feels a little bit stronger, but not back to her usual. Denies headache. Vitals/I&O/Wt Last Vital Signs Temp 97.9 F 09/13/20 16:00 Pulse 70 09/13/20 16:00 Resp 16 09/13/20 16:00 BP 131/77 09/13/20 16:00 Pulse Ox 96 09/13/20 16:00 09/13/20 09/13/20 09/13/20 06:59 14:59 22:59 Intake Total 1989 400 / 400 50 / 450 Balance 1989 400 / 400 50 / 450 Weight last 48 hrs Weight 114.759 kg Weight 112.037 kg Physical Exam Narrative: EXAM NARRATIVE: Accompanied at bedside by her other daughter. Const: COMMON NORMALS: no acute distress and patient oriented x3 EXAM LIMITATIONS: other limitations (Soft spoken, rarely difficulty w word pronunciation) GENERAL APPEARANCE: cooperative and comfortable NUTRITIONAL APPEARANCE: obese morbidly obese ORIENTATION/CONSCIOUSNESS: Yes awake and Yes Other orientation findings (Generally weak) OTHER: Slumped in bed. Overall stronger, in better spirits, but still generally weak. Speaks in more complete sentences. HENMT: COMMON NORMALS: oropharynx normal Neck/C-Spine: COMMON NORMALS: no JVD Resp: COMMON NORMALS: normal respiratory effort and clear to auscultation bilaterally AUSCULTATION: clear to auscultation bilaterally and diminished lung sounds Cardio: COMMON NORMALS: no JVD, regular rhythm, S1 normal heart sound present, S2 normal heart sound present and No murmurs present (Cardio) RHYTHM: regular rhythm HEART SOUNDS: S1 normal heart sound present and S2 normal heart sound present GI: COMMON NORMALS: Normal to inspection, nondistended, normoactive bowel sounds present, Soft to palpation and non-tender PALPATION: Yes Soft to palpation Extremity: COMMON NORMALS: no joint enlargement GENERAL: Yes edema (Chronic lymphedema) Neuro: COMMON NORMALS: patient oriented x3 and moves all extremities Skin: COMMON NORMALS: no rashes or lesions noted GENERAL SKIN EXAM: no rashes or lesions noted and petechiae Data : 09/13/20 06:05 09/13/20 06:05 Micro: Microbiology 09/12/20 15:44 Blood Culture - Preliminary Blood NEGATIVE TO DATE 09/12/20 15:44 Blood Culture - Preliminary Blood NEGATIVE TO DATE 09/11/20 10:30 Urine Culture - Final Urine,Clean Catch Escherichia coli 09/11/20 12:45 Blood Culture - Preliminary Blood Coagulase negativ staphylococc 09/11/20 12:50 Blood Culture - Preliminary Blood NEGATIVE TO DATE A&P Assessment and plan (1) Sepsis: Fever appears to be letting up, 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 Since then afebrile. Still leukopenic, and today with moderate neutropenia, 810 ANC. Thrombocytopenia appears worsened to 61,000. No schistocytes on peripheral smear. No blasts. Negative COVID-19 PCR Continue treatment for UTI, sepsis which is improving. Continue empirically treatment for possible tickborne illness. Follow-up tick panel. For now we will empirically continue acyclovir. She does still appear to have some trouble expressing herself, not sure to what extent this may be chronic as opposed to degree of aphasia. Will consider additional evaluation by MRI. 03/10 bottles gram-positive cocci on blood culture. So far coagulase-negative staph. Repeat blood cultures obtained on 09/12. With thrombocytopenia, aspirin on board, LP was not obtained. Aspirin for now is on hold since admission. Status: Acute (2) Fever: As above. Status: Acute (3) Bicytopenia: Moderate neutropenia today, 810 ANC. Placed on reverse isolation. Discussed with her and her daughter, daughter had brought her duval, unfortunately despite how good they look, will need to be removed. Neutropenic diet. Platelets down to 61,000. Check Monospot, CMV serology. Follow-up tick panel. Continue empiric doxycycline. COVID-19 is negative. Peripheral smear without blasts. No schistocytes. Monitor counts. RPI seems to suggest hypoproliferation. LDH, haptoglobin, reticulocyte not suggestive of hemolysis. Normal B12, folic acid. Globulin level appears normal. Status: Acute (4) Transaminitis: Possibly secondary to sepsis, possibly secondary to tick bite. As above. Monitor liver parameters. Status: Acute (5) UTI (urinary tract infection): E. coli. Continue Rocephin. Status: Acute (6) Hypoxia: New onset hypoxia. Daughter reports chronic issues with shortness of breath especially with activity. Not known to have CHF, although does have chronic lymphedema of lower extremities. At baseline. COVID-19 PCR negative. Rapid flu negative. Mild dependent changes in lower thorax on CT. Possibility of atypical pneumonia. TTE with poor quality, grade 1 diastolic dysfunction, valvular structures possibly normal. Assess lower extremity duplex with abnormal D-dimer. Consider assessment by VQ scan although has not had chest pain, significant cough, no hemoptysis. Not a candidate for anticoagulation with decreasing platelets. Will recheck platelets tonight, if stabilized consider addition of prophylactic dose anticoagulant. Status: Acute (7) Chronic acquired lymphedema: Check lower extremity duplex US. Bilateral lower extremities. NT proBNP likely not helpful in setting of chronic kidney disease, obesity. Does not appear to have orthopnea. TTE of poor quality, grade 1 diastolic dysfunction, grossly normal LV systolic function. Status: Acute (8) Tick bite: Tick panel requested. Doxycycline. As above. Status: Acute (9) Cystic mass of pancreas: Incidentally noted 3.5 cm lobulated cystic mass adjacent to tail of pancreas. Thought to be possibly neoplasm. Could be benign. Discussed with patient and family, with additional work-up to include MRI likely on follow-up with PCP after she recovers from acute condition. Status: Acute (10) CKD (chronic kidney disease): Creatinine appears close to recent baseline, 1.9. Status: Acute (11) History of CVA (cerebrovascular accident): Noted prior CVA on CT head. Discussed with daughter difficult exclude aware that she may have had another CVA several days ago. Certainly does have mild speech impediment, possibility of aphasia difficult to exclude. But she is also generally very weak. Currently very soft-spoken. Daughter states normally does not have trouble expressing herself. For now aspirin on hold due to sepsis, need for possible LP down the road. Once able to, resume antiplatelet, would also add cholesterol medication especially in the setting of diabetes. Optimize risk factors, blood pressure control, diabetes. Cardiac monitoring while in the hospital. Status: Acute (12) Generalized weakness: As above. Normal TSH. PT, OT assessment once she is a little bit more stable. Status: Acute Additional A&P Information DM2 HTN Morbid obesity GERD DJD Attestations Medical Necessity Statement*: Continue admission for assessment of management of improving sepsis, treatment of UTI, additional assessment of bicytopenia with moderate neutropenia, worsening thrombocytopenia. Coding Level of Care Code Acute Senior Buyer for Liliya Fuller Exam Comprehensive Diagnoses Sepsis A41.9 Fever R50.9 Bicytopenia D75.89 Transaminitis R74.01 UTI (urinary tract infection) N39.0 Hypoxia R09.02 Chronic acquired lymphedema I89.0 Tick bite W57.XXXA Cystic mass of pancreas K86.2 CKD (chronic kidney disease) N18.9 History of CVA (cerebrovascular accident) Z86.73 Generalized weakness R53.1
[2020-09-13 17:23] LABS: Glucose Point of Care 80 mg/dL (70-110)
[2020-09-13 18:11] LABS: Monoscreen Negative (Negative)
[2020-09-13 18:14] LABS: Triglycerides 130 mg/dL (0-150)
[2020-09-13 18:27] LABS: Ferritin 1745 ng/mL (15-150)
[2020-09-13 19:27] LABS: Platelet Count 65 10^3/cmm (130-400)
[2020-09-13 21:23] LABS: Glucose Point of Care 93 mg/dL (70-110)
[2020-09-14 04:00] VITALS: BP 141/69; PULSE 65; RESP 18; TEMP 36.7; O2SAT 96
[2020-09-14] MEDS: cefTRIAXone 2,000 MG in sodium chloride 0.9% (plus) 50 ML 100 MG IV ×2 (04:24→16:09)
[2020-09-14] MEDS: acyclovir 1,000 MG in sodium chloride 0.9% (100 ml) 100 ML 120 MG IV (06:20)
[2020-09-14 06:40] LABS: Glucose Point of Care 82 mg/dL (70-110)
[2020-09-14 06:43] LABS: Basophils % 0.4 %; Eosinophils # 0.1 10^3/uL (0.0-0.8); Eosinophils % 2.9 %; Hematocrit 37.8 % (37.0-47.0); Hemoglobin 11.9 g/dL (11.5-15.3); Lymphocytes # 2.5 10^3/uL (0.8-4.8); Lymphocytes % 55.9 %; Mean Corpuscular HGB Conc 31.5 g/dL (30.0-36.0); Mean Corpuscular Hemoglobin 29.8 pg (28.0-34.0); Mean Corpuscular Volume 94.7 fL (81-99); Mean Platelet Volume 10.9 fL (7.4-10.4); Monocytes # 0.5 10^3/uL (0.2-0.9); Monocytes % 10.9 %; Neutrophils # 1.34 10^3/uL (1.8-7.7); Neutrophils % 29.7 %; Nucleated Red Blood Cells % 0 %; Platelet Count 70 10^3/cmm (130-400); Red Blood Count 3.99 10^6/uL (4.1-5.3); Red Cell Distribution Width 13.6 % (12.1-15.1); White Blood Count 4.5 10^3/uL (4.0-10.0)
[2020-09-14 07:05] LABS: Alanine Aminotransferase 29 U/L (0-33); Alkaline Phosphatase 82 IU/L (35-105); Anion Gap 11.6 (5-19); Aspartate Amino Transferase 54 U/L (0-32); Blood Urea Nitrogen 23 mg/dL (8-23); Calcium 8.4 mg/dL (8.5-10.5); Carbon Dioxide 31 mmol/L (22-29); Chloride 105 mmol/L (98-107); Globulin 2.6 g/dL (1.3-4.6); Glucose 74 mg/dL (65-115); Osmolality Calculated 300 mOsm/kg (285-295); Potassium 3.6 mmol/L (3.5-5.1); Sodium 144 mmol/L (136-145); Total Bilirubin 0.2 mg/dL (0.15-1.2); Total Protein 5.6 g/dL (6.6-8.7)
[2020-09-14 07:16] LABS: Slide Review Slide Review Perform
[2020-09-14 08:00] VITALS: BP 125/77; PULSE 69; RESP 14; TEMP 36.7; O2SAT 95
[2020-09-14 08:45] VITALS: PULSE 65; RESP 18; O2SAT 96
[2020-09-14] MEDS: doxycycline 100 MG in sodium chloride 0.9% (plus) 100 ML IV ×2 (09:30→20:36)
[2020-09-14] MEDS: pantoprazole DR 40 mg Tablet PO (09:46)
--- NOTE | 2020-09-14 11:29 | PC.SOCIAL ---
IMM Update Pg. 2of IMM updated and reviewed with patient. Verbalized understanding. Copy provided.
--- NOTE | 2020-09-14 11:56 | PM.PN ---
Subjective Subjective: Interval history: States she is still feeling somewhat bleh . Did not really specifically identify anything wrong. Denies headache, photosensitivity. No chest pain. Got short of breath working with PT. Vitals/I&O/Wt Last Vital Signs Temp 98.1 F 09/14/20 08:00 Pulse 65 09/14/20 08:45 Resp 18 09/14/20 08:45 BP 125/77 09/14/20 08:00 Pulse Ox 96 09/14/20 08:45 09/13/20 09/14/20 09/14/20 22:59 06:59 14:59 Intake Total 660 / 1060 150 / 1210 120 / 120 Balance 660 / 1060 150 / 1210 120 / 120 Weight last 48 hrs Weight 114.351 kg Weight 114.759 kg Physical Exam Const: COMMON NORMALS: no acute distress and patient oriented x3 EXAM LIMITATIONS: other limitations (Soft spoken, rarely difficulty w word pronunciation) GENERAL APPEARANCE: cooperative and comfortable NUTRITIONAL APPEARANCE: obese morbidly obese ORIENTATION/CONSCIOUSNESS: Yes awake and Yes Other orientation findings (Generally weak) OTHER: Generally weak. Speaks in more complete sentences, but sometimes slightly difficult to understand. Cannot exclude some persistence of mild aphasia. HENMT: COMMON NORMALS: oropharynx normal Neck/C-Spine: COMMON NORMALS: no JVD Resp: COMMON NORMALS: normal respiratory effort and clear to auscultation bilaterally AUSCULTATION: clear to auscultation bilaterally and diminished lung sounds Cardio: COMMON NORMALS: no JVD, regular rhythm, S1 normal heart sound present, S2 normal heart sound present and No murmurs present (Cardio) RHYTHM: regular rhythm HEART SOUNDS: S1 normal heart sound present and S2 normal heart sound present GI: COMMON NORMALS: Normal to inspection, nondistended, normoactive bowel sounds present, Soft to palpation and non-tender PALPATION: Yes Soft to palpation Extremity: COMMON NORMALS: no joint enlargement GENERAL: Yes edema (Chronic lymphedema) Neuro: COMMON NORMALS: patient oriented x3 and moves all extremities Skin: COMMON NORMALS: no rashes or lesions noted GENERAL SKIN EXAM: no rashes or lesions noted and petechiae Data : 09/14/20 05:58 09/14/20 05:58 Micro: Microbiology 09/11/20 12:45 Blood Culture - Preliminary Blood Gram positive cocci Corynebacterium species 09/11/20 12:50 Blood Culture - Preliminary Blood Coagulase negativ staphylococc Corynebacterium species 09/12/20 15:44 Blood Culture - Preliminary Blood NEGATIVE TO DATE 09/12/20 15:44 Blood Culture - Preliminary Blood NEGATIVE TO DATE 09/11/20 10:30 Urine Culture - Final Urine,Clean Catch Escherichia coli A&P Assessment and plan (1) VTE (venous thromboembolism): Left lower extremity VTE noted after ultrasound ordered due to positive D-dimer, noted some hypoxia as well, so suspect she may have PE also. Discussed with her and her daughters, in the setting of thrombocytopenia anticoagulation is more risky, however, after discussion of risks they are agreeable to start. They also note that in 2014 she had a stroke which they thought could have come from a clot in her legs, and reported history of a hole in her heart . Start heparin drip. Monitor blood counts in the hospital. Monitor oxygenation, blood pressures. Echocardiogram has been obtained, although difficult study. Status: Acute (2) Sepsis: So far no recurrence of fever, blood counts appear to be coming up, WBC count up to 4.5, platelets up to 70,000. Continue ceftriaxone for urinary tract infection. Some gram-positive cocci and rods in 2/4 bottles on blood culture. For now continue vancomycin, although suspect these may be contaminants. Blood culture had been repeated, and so far there has been no growth on that one. Continue to follow. De-escalate acyclovir, watch symptoms, obtain MRI brain. 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 Since then afebrile. No schistocytes on peripheral smear. No blasts. Negative COVID-19 PCR Continue treatment for UTI. Continue empirically treatment for possible tickborne illness. Follow-up tick panel. Status: Acute (3) Fever: As above. Status: Acute (4) Bicytopenia: Appears to be now showing improvement. Pending tick panel. CMV serology. Negative Monospot Follow-up tick panel. Continue empiric doxycycline. COVID-19 is negative. Peripheral smear without blasts. No schistocytes. Monitor counts. RPI seems to suggest hypoproliferation. LDH, haptoglobin, reticulocyte not suggestive of hemolysis. Normal B12, folic acid. Globulin level appears normal. Status: Acute (5) Transaminitis: Possibly secondary to sepsis, possibly secondary to tick bite. As above. Monitor liver parameters. Status: Acute (6) UTI (urinary tract infection): E. coli. Continue Rocephin. Status: Acute (7) Hypoxia: Discussed with her and her daughters, suspect possible PE given finding of VTE in left lower extremity, hypoxia. Initiating anticoagulation as above. New onset hypoxia at admit. Daughter reports chronic issues with shortness of breath especially with activity. Not known to have CHF, although does have chronic lymphedema of lower extremities. At baseline. COVID-19 PCR negative. Rapid flu negative. Mild dependent changes in lower thorax on CT. Possibility of atypical pneumonia. TTE with poor quality, grade 1 diastolic dysfunction, valvular structures possibly normal. Status: Acute (8) Chronic acquired lymphedema: With noted DVT left lower extremity. TTE of poor quality, grade 1 diastolic dysfunction, grossly normal LV systolic function. Status: Acute (9) Tick bite: Tick panel requested. Doxycycline. As above. Status: Acute (10) Cystic mass of pancreas: Incidentally noted 3.5 cm lobulated cystic mass adjacent to tail of pancreas. Thought to be possibly neoplasm. Could be benign. Discussed with patient and family, with additional work-up to include MRI likely on follow-up with PCP after she recovers from acute condition. Status: Acute (11) CKD (chronic kidney disease): Creatinine appears close to recent baseline. Status: Acute (12) History of CVA (cerebrovascular accident): No orders were ordered prior CVA was thought to be perhaps secondary to a clot in her leg that traveled through a hole in her heart . Sounds like she was previously considered to have septal defect. Echocardiogram currently here not a good quality study. Initiate anticoagulation as above. With mild speech difficulties on presentation, obtain MRI brain. Once able to, resume antiplatelet, would also add cholesterol medication especially in the setting of diabetes. Optimize risk factors, blood pressure control, diabetes. Cardiac monitoring while in the hospital. Status: Acute (13) Generalized weakness: As above. Normal TSH. PT, OT assessment once she is a little bit more stable. Status: Acute Additional A&P Information DM2 HTN Morbid obesity GERD DJD Attestations Medical Necessity Statement*: Continue admission for fusion of anticoagulation due to VTE, suspected PE in the setting of bicytopenia including thrombocytopenia, recent sepsis, history of CVA, reported cardiac septal defect, assessment for additional CVA. Coding Level of Care Code Acute Buzzsaw Operator for Chg Fwd Diagnoses VTE (venous thromboembolism) I82.90 Sepsis A41.9 Fever R50.9 Bicytopenia D75.89 Transaminitis R74.01 UTI (urinary tract infection) N39.0 Hypoxia R09.02 Chronic acquired lymphedema I89.0 Tick bite W57.XXXA Cystic mass of pancreas K86.2 CKD (chronic kidney disease) N18.9 History of CVA (cerebrovascular accident) Z86.73 Generalized weakness R53.1
[2020-09-14 16:00] VITALS: BP 165/73; PULSE 72; RESP 17; TEMP 36.6; O2SAT 97
[2020-09-14] MEDS: heparin 5,000 unit/mL INJ 1 mL IV (16:07)
[2020-09-14] MEDS: heparin drip 25,000 UNIT/500 ML PREMIX 32 UNIT IV (16:09)
[2020-09-14 17:08] LABS: Glucose Point of Care 153 mg/dL (70-110)
[2020-09-14] MEDS: vancomycin 1,000 MG in sodium chloride 0.9% 250 ML 250 MG IV (17:16)
--- NOTE | 2020-09-14 17:41 | USR_ITS ---
PROCEDURE INFORMATION: Exam: US Duplex Lower Extremity Veins, Bilateral Exam date and time: 09/14/2020 5:41 PM Age: 85 years old Clinical indication: Abnormal findings; Abnormal lab test; Elevated d-dimer; Swelling (edema) of limb; Lower extremity, bilateral; Additional info: Swelling, abnormal ddimer TECHNIQUE: Imaging protocol: Real-time duplex ultrasound of the extremities with 2-D hull scale, color Doppler flow and spectral waveform analysis with image documentation. Complete exam focused on the bilateral lower extremity veins. COMPARISON: None FINDINGS: Right deep veins: No deep venous thrombosis in the visualized right common femoral , profunda femoris, superficial femoral, popliteal, peroneal, and posterior tibial veins. Right superficial veins: Superficial thrombus in the right greater saphenous vein. Left deep veins: Deep venous thrombosis in the visualized left superficial femoral, popliteal, and peroneal veins. Left superficial veins: Saphenofemoral junction is patent without thrombus. Soft tissues: Unremarkable. US/[place] [id number] IMPRESSION: 1. No deep venous thrombosis in the visualized right lower extremity. 2. Deep venous thrombosis in the visualized left superficial femoral, popliteal, and peroneal veins. 3. Superficial thrombus in the right greater saphenous vein. The aforementioned findings initiated a critical results communication pathway. An addendum will be issued at the time of clincian notification.
[2020-09-14 20:00] VITALS: BP 187/71; PULSE 78; RESP 18; TEMP 36.8; O2SAT 95
[2020-09-14 20:34] LABS: Glucose Point of Care 213 mg/dL (70-110)
[2020-09-14 22:44] LABS: Partial Thromboplastin Time > 250.0 SECONDS (23.9-36.7)
[2020-09-15] VITALS (8 sets, daily range): BP systolic 138–177; BP diastolic 62–86; PULSE 69–112; RESP 16–20; TEMP 36.6–37.1; O2SAT 90–98
[2020-09-15] MEDS: cefTRIAXone 2,000 MG in sodium chloride 0.9% (plus) 50 ML 100 MG IV ×2 (03:51→15:58)
[2020-09-15 06:00] LABS: Basophils % 0.6 %; Eosinophils # 0.3 10^3/uL (0.0-0.8); Eosinophils % 4.4 %; Hematocrit 37.9 % (37.0-47.0); Hemoglobin 11.8 g/dL (11.5-15.3); Lymphocytes # 4.1 10^3/uL (0.8-4.8); Lymphocytes % 64.8 %; Mean Corpuscular HGB Conc 31.1 g/dL (30.0-36.0); Mean Corpuscular Hemoglobin 29.9 pg (28.0-34.0); Mean Corpuscular Volume 95.9 fL (81-99); Mean Platelet Volume 10.7 fL (7.4-10.4); Monocytes # 0.5 10^3/uL (0.2-0.9); Monocytes % 7.9 %; Neutrophils # 1.41 10^3/uL (1.8-7.7); Neutrophils % 22.1 %; Nucleated Red Blood Cells % 0 %; Platelet Count 91 10^3/cmm (130-400); Red Blood Count 3.95 10^6/uL (4.1-5.3); Red Cell Distribution Width 13.7 % (12.1-15.1); White Blood Count 6.4 10^3/uL (4.0-10.0)
[2020-09-15 06:19] LABS: Glucose Point of Care 152 mg/dL (70-110)
[2020-09-15 06:24] LABS: Alanine Aminotransferase 29 U/L (0-33); Albumin Level 3.2 g/dL (3.5-5.2); Alkaline Phosphatase 74 IU/L (35-105); Anion Gap 15.8 (5-19); Aspartate Amino Transferase 53 U/L (0-32); Blood Urea Nitrogen 19 mg/dL (8-23); Calcium 8.4 mg/dL (8.5-10.5); Carbon Dioxide 27 mmol/L (22-29); Chloride 103 mmol/L (98-107); Globulin 2.5 g/dL (1.3-4.6); Glucose 146 mg/dL (65-115); Osmolality Calculated 299 mOsm/kg (285-295); Potassium 3.8 mmol/L (3.5-5.1); Sodium 142 mmol/L (136-145); Total Bilirubin 0.2 mg/dL (0.15-1.2); Total Protein 5.7 g/dL (6.6-8.7)
[2020-09-15 06:35] LABS: Slide Review Slide Review Perform
[2020-09-15] MEDS: doxycycline 100 MG in sodium chloride 0.9% (plus) 100 ML IV ×2 (08:42→21:31)
[2020-09-15] MEDS: pantoprazole DR 40 mg Tablet PO (08:43)
[2020-09-15 09:39] LABS: Partial Thromboplastin Time 27.3 SECONDS (23.9-36.7)
[2020-09-15 10:08] LABS: Cytomegalovirus Antibody (IGG) >10.00 U/mL; Cytomegalovirus Antibody (IGM) <30.00 AU/mL
[2020-09-15 10:32] LABS: Glucose Point of Care 182 mg/dL (70-110)
--- NOTE | 2020-09-15 12:00 | MR_ITS ---
WS: [id number] Victoria rdz [id number] [phone] [id number] MRI HEAD WITHOUT CONTRAST TECHNIQUE: Sagittal T1, T2 axial, T2 axial FLAIR, axial and coronal T1 images, axial susceptibility w eighted imaging, axial diffusion weighted images, and coronal T2 images were obtained. CLINICAL INFORMATION: Assess for poss CVA, herpes encephalitis COMPARISON: None. FINDINGS: Limited examination with fast imaging performed. No evidence of restricted diffusion to suggest acute ischemia. Ventricular system and basal cisterns are patent. Moderate small vessel changes. Moderate to advanced parenchymal volume loss. Multiple chr onic lacunar infarcts involving the cerebellum bilaterally. Paranasal sinuses and mastoid air cells a re well aerated. Normal vascular flow voids at the skull base. Chronic lacunar infarcts left thalamus. Chronic lacuna r infarcts in the periventricular white matter and centrum semiovale bilaterally. No hemosiderin on s usceptibly weighted images. MR/MR head wo con* [id number] IMPRESSION: 1. No evidence of restricted diffusion to suggest acute ischemia. 2. Moderate small vessel changes with moderate to advanced parenchymal volume loss. 3. Chronic lacunar infarcts involving the left thalamus and bilateral centrum semiovale. 4. Multiple chronic lacunar infarcts involving the cerebellum bilaterally. 5. No hemosiderin on susceptibly weighted images.
[2020-09-15 12:23] LABS: Lyme AB Screen <0.90 index
[2020-09-15] MEDS: vancomycin 1,000 MG in sodium chloride 0.9% 250 ML 250 MG IV (15:59)
--- NOTE | 2020-09-15 16:08 | P.PN_ITS ---
Subjective Subjective: Interval history: Feels about the same, afebrile seen with PT Vitals/I&O/Wt Last Vital Signs Temp 97.9 F 09/15/20 16:00 Pulse 76 09/15/20 16:01 Resp 16 09/15/20 16:01 BP 141/64 09/15/20 16:00 Pulse Ox 94 09/15/20 16:01 09/15/20 09/15/20 09/15/20 06:59 14:59 22:59 Intake Total 50 / 1243.333 380 / 380 Balance 50 / 1243.333 380 / 380 Weight last 48 hrs Weight 252 lb 4.8 oz Weight 252 lb 1.6 oz Physical Exam Const: COMMON NORMALS: no acute distress and patient oriented x3 Resp: COMMON NORMALS: normal respiratory effort and No retractions Cardio: COMMON NORMALS: regular rate and regular rhythm RATE: regular rate RHYTHM: regular rhythm GI: COMMON NORMALS: Soft to palpation and non-tender PALPATION: Yes Soft to palpation Extremity: COMMON NORMALS: normal to inspection Neuro: COMMON NORMALS: patient oriented x3 and CN's II-XII intact bilaterally Psych: ATTITUDE: Yes calm Data : 09/15/20 05:05 09/15/20 05:05 Micro: Microbiology 09/11/20 12:50 Blood Culture - Preliminary Blood Coagulase negativ staphylococc Corynebacterium species Micrococcus and related genera 09/11/20 12:45 Blood Culture - Preliminary Blood Staphylococcus sp coag neg Corynebacterium species Micrococcus and related genera A&P Assessment and plan (1) VTE (venous thromboembolism): Status: Acute (2) Generalized weakness: Status: Acute (3) Bicytopenia: Status: Acute Additional A&P Information #VTE --stable --on heparin gtt #UTI -continue ceftriaxone #leukopenia -resolved #thrombocytopenia --platelet slightly better #IDDM --stable Attestations Medical Necessity Statement*: Victoria Knox's hospital stay will require greater than 2 midnights for thrombocytopenia Coding Level of Care Code Acute Fuel Conversion Technician for g Fwd Diagnoses VTE (venous thromboembolism) I82.90 Generalized weakness R53.1 Bicytopenia D75.89
[2020-09-15 16:51] LABS: Glucose Point of Care 139 mg/dL (70-110)
[2020-09-15 17:24] LABS: Vancomycin Trough 20.6 ug/mL (10-15)
[2020-09-15 21:34] LABS: Glucose Point of Care 115 mg/dL (70-110)
[2020-09-16] MEDS: cefTRIAXone 2,000 MG in sodium chloride 0.9% (plus) 100 ML 100 MG IV ×2 (02:35→14:53)
[2020-09-16 04:00] VITALS: BP 167/84; PULSE 81; RESP 18; TEMP 36.3; O2SAT 94
[2020-09-16 05:55] LABS: Glucose Point of Care 80 mg/dL (70-110)
[2020-09-16 06:44] LABS: Alanine Aminotransferase 29 U/L (0-33); Albumin Level 3.4 g/dL (3.5-5.2); Alkaline Phosphatase 71 IU/L (35-105); Aspartate Amino Transferase 49 U/L (0-32); Blood Urea Nitrogen 19 mg/dL (8-23); Calcium 8.4 mg/dL (8.5-10.5); Carbon Dioxide 27 mmol/L (22-29); Chloride 104 mmol/L (98-107); Globulin 2.4 g/dL (1.3-4.6); Glucose 89 mg/dL (65-115); Osmolality Calculated 298 mOsm/kg (285-295); Sodium 143 mmol/L (136-145); Total Bilirubin 0.2 mg/dL (0.15-1.2); Total Protein 5.8 g/dL (6.6-8.7)
[2020-09-16 06:45] LABS: Anion Gap 15.8 (5-19); Potassium 3.8 mmol/L (3.5-5.1)
[2020-09-16 08:00] VITALS: BP 173/74; PULSE 69; RESP 16; TEMP 36.7; O2SAT 96
[2020-09-16] MEDS: pantoprazole DR 40 mg Tablet PO (09:28)
[2020-09-16] MEDS: doxycycline 100 MG in sodium chloride 0.9% (plus) 100 ML IV ×2 (09:59→21:16)
[2020-09-16 12:00] VITALS: BP 180/80; PULSE 68; RESP 16; TEMP 36.4; O2SAT 94
[2020-09-16 12:07] LABS: Glucose Point of Care 171 mg/dL (70-110)
--- NOTE | 2020-09-16 12:21 | PC.SOCIAL ---
IMM Updated Updated pt on Pg 2 IMM. No questions voiced. Provided pt a copy. Signed, dated, & timed copy in chart.
--- NOTE | 2020-09-16 14:02 | P.PN_ITS ---
Subjective Subjective: Interval history: BP elevated this AM feels worse today afebrile Vitals/I&O/Wt Last Vital Signs Temp 98.0 F 09/16/20 08:00 Pulse 69 09/16/20 08:00 Resp 16 09/16/20 08:00 BP 173/74 09/16/20 08:00 Pulse Ox 96 09/16/20 08:00 09/15/20 09/16/20 09/16/20 22:59 06:59 14:59 Intake Total 640 / 1020 100 / 1120 220 / 220 Balance 640 / 1020 100 / 1120 220 / 220 Weight last 48 hrs Weight 249 lb 8.801 oz Weight 252 lb 4.8 oz Physical Exam Const: COMMON NORMALS: no acute distress and patient oriented x3 Resp: COMMON NORMALS: normal respiratory effort and No retractions Cardio: COMMON NORMALS: regular rate and regular rhythm RATE: regular rate RHYTHM: regular rhythm GI: COMMON NORMALS: Soft to palpation and non-tender PALPATION: Yes Soft to palpation Extremity: COMMON NORMALS: normal to inspection Neuro: COMMON NORMALS: patient oriented x3 and CN's II-XII intact bilaterally Psych: ATTITUDE: Yes calm Data : 09/15/20 05:05 09/16/20 06:12 Micro: Microbiology 09/11/20 12:50 Blood Culture - Preliminary Blood Coagulase negativ staphylococc Corynebacterium species Micrococcus and related genera 09/11/20 12:45 Blood Culture - Preliminary Blood Staphylococcus sp coag neg Corynebacterium species Micrococcus and related genera A&P Assessment and plan (1) VTE (venous thromboembolism): Status: Acute (2) Generalized weakness: Status: Acute (3) Tick bite: Status: Acute Additional A&P Information #VTE --stable --on heparin gtt stop this, start eliquis #UTI -continue ceftriaxone #leukopenia -resolved #thrombocytopenia --platelet slightly better #IDDM --stable #HTN --restart metoprolol Attestations Medical Necessity Statement*: Victoria Vesta Knox's hospital stay will require greater than 2 midnights for dvt Coding Level of Care Code Acute Vp Product Management for [facility] Fwd Diagnoses VTE (venous thromboembolism) I82.90 Generalized weakness R53.1 Tick bite W57.XXXA
[2020-09-16] MEDS: metoprolol succinate ER (24 HR) 25 mg Tablet PO (14:54)
[2020-09-16 15:39] LABS: Vancomycin Trough 21.7 ug/mL (10-15)
[2020-09-16 16:00] VITALS: BP 163/62; PULSE 71; RESP 16; TEMP 36.6; O2SAT 93
--- NOTE | 2020-09-16 16:33 | PC.NUTR ---
Nutrition assessment completed for LOS, 42% average intake noted. Recommend Glucerna with meals to provide additional kcal/protein given poor po intakes. Recommend to encourage po intakes of meals/supplements and provide preferences as appropriate within guidelines of consistent carb neutropenic diet. See RD assessment for further details.
[2020-09-16 17:25] LABS: Glucose Point of Care 163 mg/dL (70-110)
[2020-09-16 20:00] VITALS: BP 182/79; PULSE 66; RESP 20; TEMP 36.7; O2SAT 94
[2020-09-16 21:12] LABS: Glucose Point of Care 127 mg/dL (70-110)
[2020-09-16] MEDS: apixaban 5 mg Tablet 10 MG PO (21:15)
[2020-09-16] MEDS: vancomycin 1,000 MG in sodium chloride 0.9% 250 ML 250 MG IV (21:16)
[2020-09-16 23:55] VITALS: BP 147/73; PULSE 63; RESP 18; TEMP 37.1; O2SAT 92
[2020-09-17] MEDS: cefTRIAXone 2,000 MG in sodium chloride 0.9% (plus) 100 ML 100 MG IV ×2 (02:25→16:11)
[2020-09-17 04:30] VITALS: BP 127/73; PULSE 68; RESP 20; TEMP 36.8; O2SAT 94
[2020-09-17 06:11] LABS: Basophils # 0.1 10^3/uL (0.0-0.1); Basophils % 0.8 %; Eosinophils # 0.3 10^3/uL (0.0-0.8); Eosinophils % 3.2 %; Hematocrit 36.5 % (37.0-47.0); Hemoglobin 11.2 g/dL (11.5-15.3); Lymphocytes # 5.1 10^3/uL (0.8-4.8); Lymphocytes % 55.8 %; Mean Corpuscular HGB Conc 30.7 g/dL (30.0-36.0); Mean Corpuscular Volume 97.9 fL (81-99); Mean Platelet Volume 9.9 fL (7.4-10.4); Monocytes # 0.8 10^3/uL (0.2-0.9); Monocytes % 8.4 %; Neutrophils # 2.84 10^3/uL (1.8-7.7); Neutrophils % 31.1 %; Nucleated Red Blood Cells % 0 %; Platelet Count 128 10^3/cmm (130-400); Red Blood Count 3.73 10^6/uL (4.1-5.3); Red Cell Distribution Width 13.8 % (12.1-15.1); White Blood Count 9.1 10^3/uL (4.0-10.0)
[2020-09-17 06:26] LABS: Glucose Point of Care 52 mg/dL (70-110)
[2020-09-17 06:28] LABS: Alanine Aminotransferase 23 U/L (0-33); Alkaline Phosphatase 65 IU/L (35-105); Anion Gap 12.2 (5-19); Aspartate Amino Transferase 37 U/L (0-32); Blood Urea Nitrogen 17 mg/dL (8-23); Calcium 8.2 mg/dL (8.5-10.5); Carbon Dioxide 28 mmol/L (22-29); Chloride 108 mmol/L (98-107); Globulin 2.3 g/dL (1.3-4.6); Glucose 46 mg/dL (65-115); Osmolality Calculated 299 mOsm/kg (285-295); Potassium 3.2 mmol/L (3.5-5.1); Sodium 145 mmol/L (136-145); Total Bilirubin 0.2 mg/dL (0.15-1.2); Total Protein 5.3 g/dL (6.6-8.7)
[2020-09-17 06:32] LABS: Slide Review Slide Review Perform
[2020-09-17 06:43] LABS: Glucose Point of Care 55 mg/dL (70-110)
[2020-09-17 08:43] LABS: Glucose Point of Care 130 mg/dL (70-110)
[2020-09-17] MEDS: doxycycline 100 MG in sodium chloride 0.9% (plus) 100 ML IV (09:05)
[2020-09-17] MEDS: metoprolol succinate ER (24 HR) 25 mg Tablet PO (09:07)
[2020-09-17] MEDS: pantoprazole DR 40 mg Tablet PO (09:07)
[2020-09-17] MEDS: apixaban 5 mg Tablet 10 MG PO ×2 (09:07→20:26)
--- NOTE | 2020-09-17 10:57 | P.PN_ITS ---
Subjective Subjective: Interval history: 85-year-old lady with history of CVA, diabetes, HTN, DJD, GERD, morbid obesity, chronic lymphedema was brought in by her family (she lives with her 2 daughters) due to generalized weakness Patient was admitted for sepsis likely thought to be UTI. Also noted to be leukopenic. She had also reported a tick bite. Doxycycline was started. Also diagnosed with a DVT. This morning fingerstick blood sugars were noted to be low. This was treated. Insulin was held. She is tolerating medications. Afebrile Medications: Reviewed: Yes Vitals/I&O/Wt Last Vital Signs Temp 98.3 F 09/17/20 04:30 Pulse 68 09/17/20 04:30 Resp 20 H 09/17/20 04:30 BP 127/73 09/17/20 04:30 Pulse Ox 94 09/17/20 04:30 09/16/20 09/17/20 09/17/20 22:59 06:59 14:59 Intake Total 810 / 1150.667 100 / 1250.667 200 / 200 Output Total 200 / 200 Balance 610 / 950.667 100 / 1050.667 200 / 200 Weight last 48 hrs Weight 252 lb 4.8 oz Weight 249 lb 8.801 oz Physical Exam Const: COMMON NORMALS: no acute distress and patient oriented x3 Neck/C-Spine: COMMON NORMALS: no JVD Resp: COMMON NORMALS: normal respiratory effort and No retractions Cardio: COMMON NORMALS: no JVD and regular rate RATE: regular rate GI: COMMON NORMALS: Normal to inspection, nondistended, normoactive bowel sounds present, Soft to palpation and non-tender PALPATION: Yes Soft to palpation Extremity: COMMON NORMALS: normal to inspection and full ROM Neuro: MARCELINA COMA SCALE: document GCS findings COMMON NORMALS: patient oriented x3 Psych: COMMON NORMALS: mental status grossly normal and Normal thought process present THOUGHT PROCESS: Normal thought process present Data : 09/17/20 06:03 09/17/20 06:03 A&P Assessment and plan (1) VTE (venous thromboembolism): Status: Acute (2) Generalized weakness: Status: Acute (3) Tick bite: Status: Acute (4) Fever: Status: Acute (5) Hypoxia: Status: Acute (6) Transaminitis: Status: Acute (7) CKD (chronic kidney disease): Status: Acute (8) UTI (urinary tract infection): Status: Acute Additional A&P Information #hypoglycemia --treated --decrease basal insulin --monitor FSBS, PRN Dextrose #VTE --stable --continue Eliquis #UTI -continue ceftriaxone #leukopenia -resolved #thrombocytopenia --platelet slightly better #IDDM --stable #HTN --restart metoprolol #tick bite --stop doxy #coagnegative bacteremia --repeat cx negative --dc Vanc Attestations Medical Necessity Statement*: Victoria Vesta Knox's hospital stay will require greater than 2 midnights for weakness Coding Level of Care Code Acute 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
[2020-09-17 11:39] LABS: Glucose Point of Care 69 mg/dL (70-110)
[2020-09-17 12:00] VITALS: BP 162/82; PULSE 87; RESP 22; TEMP 36.6; O2SAT 97
[2020-09-17 12:33] LABS: Glucose Point of Care 135 mg/dL (70-110)
[2020-09-17 16:00] VITALS: BP 160/66; PULSE 67; RESP 20; TEMP 36.8; O2SAT 95
[2020-09-17 18:23] LABS: Glucose Point of Care 244 mg/dL (70-110)
[2020-09-17 20:00] VITALS: BP 126/60; PULSE 68; RESP 16; TEMP 36.9; O2SAT 93
[2020-09-17 20:55] LABS: Glucose Point of Care 179 mg/dL (70-110)
[2020-09-18] VITALS: BP 112/51; PULSE 72; RESP 16; TEMP 36.8; O2SAT 96
[2020-09-18] MEDS: cefTRIAXone 2,000 MG in sodium chloride 0.9% (plus) 100 ML 100 MG IV (01:31)
[2020-09-18 02:48] LABS: Glucose Point of Care 144 mg/dL (70-110)
[2020-09-18 03:40] VITALS: BP 157/83; PULSE 83; RESP 18; TEMP 36.7; O2SAT 91
--- NOTE | 2020-09-18 05:59 | PC.NURSE ---
shift note, patient rested without issues this shift, up to BSC x1 with small BM and urine, transferred with staff assist and walker, IV lines to bilat chest infiltrated, new IV line placed to right lower arm, blood glucose checked mid shift with result of 144
[2020-09-18 06:44] LABS: Glucose Point of Care 152 mg/dL (70-110)
[2020-09-18 07:41] VITALS: BP 163/78; PULSE 71; RESP 16; TEMP 36.9; O2SAT 96
[2020-09-18] MEDS: apixaban 5 mg Tablet 10 MG PO (08:33)
[2020-09-18] MEDS: pantoprazole DR 40 mg Tablet PO (08:34)
[2020-09-18] MEDS: metoprolol succinate ER (24 HR) 25 mg Tablet PO (08:34)
--- NOTE | 2020-09-18 09:10 | PC.SOCIAL ---
IMM Update Pg.2 of IMM updated and reviewed with patient, who verbalized understanding. Copy provided.
[2020-09-18 10:52] LABS: Glucose Point of Care 160 mg/dL (70-110)
[2020-09-18 11:44] VITALS: BP 153/77; PULSE 67; RESP 19; TEMP 36.5; O2SAT 95
--- NOTE | 2020-09-18 11:45 | PM.DCS ---
Discharge Providers Date of Admission: 09/11/20 14:47 Date of Discharge: September 18, 2020 Attending Provider at Admission: Tyrone Velarde Attending Provider at Discharge: Dinh Chatman MD Primary Care Provider: Liana Lyon MD Diagnoses at Discharge Discharge Diagnosis (1) VTE (venous thromboembolism): Status: Acute (2) Generalized weakness: Status: Acute (3) Tick bite: Status: Acute (4) Fever: Status: Acute (5) Hypoxia: Status: Acute (6) Transaminitis: Status: Acute (7) CKD (chronic kidney disease): Status: Acute (8) UTI (urinary tract infection): Status: Acute Reason for Visit Reason for Visit: WEAKNESS/ DIFFICULTY BREATHING/ SPEAKING Hospital Course Hospital Course 85-year-old lady with history of CVA, diabetes, HTN, DJD, GERD, morbid obesity, chronic lymphedema was brought in by her family (she lives with her 2 daughters) due to generalized weakness Patient was admitted for sepsis likely thought to be UTI. Also noted to be leukopenic. She had also reported a tick bite. Doxycycline was started. Also diagnosed with a DVT. Is also noted to have low blood sugars. Her insulin dose was decreased. She had abnormal blood culture repeat were negative. Questionable contaminant. We did continue antibiotics. She was evaluated physical therapy. She appears to be close to her baseline. She will be going home with her family. Physical Exam Const: COMMON NORMALS: no acute distress and patient oriented x3 Neck/C-Spine: COMMON NORMALS: no JVD Resp: COMMON NORMALS: normal respiratory effort and No retractions Cardio: COMMON NORMALS: no JVD and regular rate RATE: regular rate GI: COMMON NORMALS: Soft to palpation and non-tender PALPATION: Yes Soft to palpation Neuro: COMMON NORMALS: patient oriented x3 Psych: COMMON NORMALS: mental status grossly normal and Normal thought process present THOUGHT PROCESS: Normal thought process present Discharge Data Data Completed and Pending: Completed Studies During Hospitalization Category Date Time Status CT head wo con* 7 0450 Stat Cat Scan 09/11/20 12:[address] kidney stone 7 6666 Stat Cat Scan 09/11/20 12:58 Completed XR chest 1V ebonie ble [id number] Stat Exams 09/11/20 10:12 Completed MR head wo con* [id number] [id number] Routine MRI 09/15/20 12:00 [place] [id number] Routin e Ultrasound 09/14/20 17:41 Completed CV. echo complete * [id number] Routine Ultrasound 09/12/20 22:19 Completed Pending at discharge Category Date Time Status Comprehensive Met abolic Panel Routi ne Lab 09/18/20 11:22 Received Tick Panel Routin e Lab 09/11/20 17:49 Results MR head wo con* 7 [id number] Routine MRI 09/15/20 14:30 Unverified Labs from last 24 hours 09/18/20 09/18/20 09/18/20 11:22 10:41 06:28 Sodium Pending Potassium Pending Chloride Pending Carbon Dioxide Pending Anion Gap Pending BUN Pending Creatinine Pending GFR Calculation Pending Glucose Pending POC Glucose 160 H 152 H Calculated Osmolal ity Pending Calcium Pending Total Bilirubin Pending AST Pending ALT Pending Alkaline Phosphata se Pending Total Protein Pending Albumin Pending Globulin Pending 09/18/20 09/17/20 09/17/20 02:45 20:50 17:48 Sodium Potassium Chloride Carbon Dioxide Anion Gap BUN Creatinine GFR Calculation Glucose POC Glucose 144 H 179 H 244 H Calculated Osmolal ity Calcium Total Bilirubin AST ALT Alkaline Phosphata se Total Protein Albumin Globulin 09/17/20 11:50 Sodium Potassium Chloride Carbon Dioxide Anion Gap BUN Creatinine GFR Calculation Glucose POC Glucose 135 H Calculated Osmolal ity Calcium Total Bilirubin AST ALT Alkaline Phosphata se Total Protein Albumin Globulin Vitals: Last Vital Signs Temp 97.7 F 09/18/20 11:44 Pulse 67 09/18/20 11:44 Resp 19 H 09/18/20 11:44 BP 153/77 09/18/20 11:44 Pulse Ox 95 09/18/20 11:44 Discharge Plan Discharge Patient Disposition: Home Condition: Stable Prescriptions: New Eliquis 5 mg Tablet See Rx Instructions .ROUTE .COMPLEX Qty: 76 RF: 0 metoprolol succinate 25 mg Tablet Extended Release 24 Hr 25 mg PO DAILY Qty: 30 RF: 0 insulin detemir U-100 100 unit/mL (3 mL) insulin pen 10 unit SUBCUT DAILY Qty: 15 RF: 0 cefdinir 300 mg capsule 300 mg PO BID 7 Days Qty: 14 RF: 0 Continued Advanced Probiotic-10 13 mg (3 billion cell) capsule 1 cap PO DAILY RF: 0 pyridoxine (vitamin B6) 100 mg tablet 50 mg PO DAILY RF: 0 cholecalciferol (vitamin D3) 50 mcg (2,000 unit) capsule 50 mcg PO DAILY RF: 0 aspirin 81 mg tablet,delayed release (DR/EC) 81 mg PO DAILY RF: 0 omeprazole 20 mg capsule,delayed release(DR/EC) 20 mg PO DAILY 90 Days Qty: 90 RF: 3 insulin aspart U-100 [Novolog U-100 Insulin aspart] 100 unit/mL solution 10 unit SUBCUT TID 30 Days Qty: 10 RF: 11 diclofenac sodium [Voltaren Arthritis Pain] 1 % gel 2 g topical QID Qty: 100 RF: 3 hydrocodone-acetaminophen 5-325 mg tablet 1 tab PO Q12H PRN (Reason: pain) 30 Days Qty: 60 RF: 0 potassium 99 mg PO DAILY RF: 0 metoprolol tartrate 25 mg tablet 25 mg PO DAILY RF: 0 Held furosemide 40 mg tablet 40 mg PO BID 90 Days Qty: 180 RF: 3 Hold Instructions: restart after your PCP visit Discontinued Levemir FlexTouch U-100 Insuln 100 unit/mL (3 mL) insulin pen 30 unit SUBCUT DAILY 30 Days Qty: 15 RF: 5 Discharge Orders: Discharge Order (Routine); Ordered 09/18/20 Ordered By: Dinh Chatman Referrals: Liana Lyon MD [Primary Care Provider] - 09/25/20 10:00 am () Discharge Diet: Diabetic Discharge Activity: Resume usual activity Patient Instructions: Metoprolol (By mouth), Cefdinir (By mouth), Apixaban (By mouth), Venous Thromboembolism (GEN), Opioid Safety Discharge Attestations Time Spent in Discharge Care*: less than 30 min Quality Metrics Clinical Quality Measures During this hospital stay, did patient experience: None Coding Level of Care Code Acute Chg FW DC note Diagnoses VTE (venous thromboembolism) I82.90 Generalized weakness R53.1 Tick bite W57.XXXA Fever R50.9 Hypoxia R09.02 Transaminitis R74.01 CKD (chronic kidney disease) N18.9 UTI (urinary tract infection) N39.0
[2020-09-18 11:52] LABS: Alanine Aminotransferase 25 U/L (0-33); Albumin Level 3.4 g/dL (3.5-5.2); Alkaline Phosphatase 68 IU/L (35-105); Aspartate Amino Transferase 37 U/L (0-32); Blood Urea Nitrogen 18 mg/dL (8-23); Calcium 8.4 mg/dL (8.5-10.5); Carbon Dioxide 25 mmol/L (22-29); Chloride 107 mmol/L (98-107); Globulin 2.6 g/dL (1.3-4.6); Glucose 173 mg/dL (65-115); Osmolality Calculated 302 mOsm/kg (285-295); Sodium 143 mmol/L (136-145); Total Bilirubin 0.2 mg/dL (0.15-1.2)
[2020-09-18 11:55] LABS: Anion Gap 15.4 (5-19); Potassium 4.4 mmol/L (3.5-5.1)
[2020-09-18 14:41] VITALS: BP 153/77; PULSE 67; RESP 19; TEMP 36.5; O2SAT 95
[2020-09-18 17:38] LABS: E. Chaffeensis AB IGG <1:64; E. Chaffeensis AB IGM <1:20; RMSF IGG NOT DETECTED; RMSF IGM NOT DETECTED
== END 2020-09-18 14:42 | disposition home or self-care (01) | DRG 872 ==
LOC: ER 14:59 → MEDSURG 18:54
PROVIDERS: Hospitalist; Admitting Provider Internal Medicine; Emergency Provider Family Medicine; PCP Family Medicine; Visit Provider Internal Medicine
DX: A41.9 Sepsis, unspecified organism (principal); Z68.42 Body mass index [BMI] 45.0-49.9, adult; N39.0 Urinary tract infection, site not specified; I82.4Z1 Acute embolism and thrombosis of unspecified deep veins of right distal lower extremity; I82.412 Acute embolism and thrombosis of left femoral vein; I82.432 Acute embolism and thrombosis of left popliteal vein; I82.452 Acute embolism and thrombosis of left peroneal vein; Z86.73 Personal history of transient ischemic attack (TIA), and cerebral infarction without residual deficits; E11.22 Type 2 diabetes mellitus with diabetic chronic kidney disease; I12.9 Hypertensive chronic kidney disease with stage 1 through stage 4 chronic kidney disease, or unspecified chronic kidney disease; N18.9 Chronic kidney disease, unspecified; E11.42 Type 2 diabetes mellitus with diabetic polyneuropathy; M47.812 Spondylosis without myelopathy or radiculopathy, cervical region; M47.816 Spondylosis without myelopathy or radiculopathy, lumbar region; K21.9 Gastro-esophageal reflux disease without esophagitis; E66.01 Morbid (severe) obesity due to excess calories; E03.9 Hypothyroidism, unspecified; M19.90 Unspecified osteoarthritis, unspecified site; Z96.649 Presence of unspecified artificial hip joint; D69.6 Thrombocytopenia, unspecified; K86.9 Disease of pancreas, unspecified; D70.9 Neutropenia, unspecified; B96.20 Unspecified Escherichia coli [E. coli] as the cause of diseases classified elsewhere; Z79.891 Long term (current) use of opiate analgesic; Z79.4 Long term (current) use of insulin; Z79.82 Long term (current) use of aspirin
CPT/HCPCS: 36415; 36416; 70450; 70551; 71045; 74176; 80053; 80202; 80500; 81001; 82009; 82550; 82607; 82728; 82746; 82962; 83010; 83605; 83615; 83690; 84443; 84478; 85014; 85025; 85045; 85049; 85362; 85378; 85384; 85610; 85730; 86308; 86618; 86666; 86757; 87040; 87077; 87086; 87186; 87205; 87426; 87635; 87804; 93005; 93306; 93970; 94664; 96365; 96367; 96372; 96375; 97110; 97116; 97161; 97165; 97530; 99285; J0133; J0696; J1644; J1815; J3370; J3490; J7050